=== PATIENT | male | born 1955 | race Caucasian/White ===

== ENCOUNTER 2017-01-11 07:21 | Day surgery (SDC) | payer MEDICARE, MEDICAID ==
[2017-01-11] MEDS ORDERED: Propofol 200 MG/20 ML SDV ONE (07:36)
[2017-01-11] MEDS ORDERED: fentaNYL 100 MCG/2 ML SDV ONE (07:36)
[2017-01-11] MEDS ORDERED: Midazolam 1 MG/ML 2 ML SDV ONE (07:36)
[2017-01-11] MEDS ORDERED: Dextrose 5%-Lactated Ringers 1,000 ML IV SCH (07:45)
[2017-01-11] MEDS ORDERED: Glycopyrrolate 0.2 MG/ML 2 ML SDV IVPUSH ONE (08:15)
[2017-01-11] MEDS ORDERED: Albuterol/Ipratropium 3.0-0.5 MG/3 ML Neb Soln NEB ONE (08:45)
[2017-01-11] MEDS ORDERED: Pantoprazole 40 MG Vial IVPUSH ONE (09:42)
[2017-01-11 10:53] VITALS: BP 128/69
--- NOTE | 2017-01-18 10:22 | OR ---
DATE OF PROCEDURE: 01/11/2017 PREOPERATIVE DIAGNOSIS: Anemia. POSTOPERATIVE DIAGNOSIS: Mild gastritis with scattered small erosions in gastric body and antrum. OPERATIVE PROCEDURES: Esophagogastroduodenoscopy with antral biopsies for CLOtest. ANESTHESIA: IV sedation. INDICATION FOR PROCEDURE: This is a 61-year-old presenting with macrocytic anemia. The plan is to proceed with an upper GI endoscopy with biopsies as indicated. Potential risks including bleeding and perforation were discussed, and the patient wishes to proceed. DETAILS OF PROCEDURE: The patient was taken to the operating room and placed in a left lateral decubitus position. IV sedation was administered, after which the upper GI endoscope was passed orally through the length of the esophagus and into the stomach with retroflexion view of the fundus, thereafter through the pyloric channel and into the duodenum to the junction of the third and fourth portions. The hypopharynx, larynx, upper esophageal sphincter, esophageal body, and EG junction were all unremarkable. As one passed the scope into the stomach, there was mild, more or less, diffuse gastritis. There were a few scattered erosions within the gastric body and antrum. No bleeding was seen and no true ulcers were seen. The pyloric channel and duodenum to the junction of the third and fourth portions were unremarkable. At this point, biopsies were obtained from the antrum and sent for CLOtest for H. pylori. Minimal bleeding from the biopsy sites was seen and the procedure then concluded. An important set of negatives in this case, given the history of alcoholism, was that of lack of any evidence of esophageal or gastric varices, and he had no significant hiatal hernia or gastroesophageal reflux disease. The plan will be to start the patient on Protonix 40 mg daily, and we will have him see Shaun Canada PA-C, in followup as arranged. Jesús Galindo MD /[id number]
== END 2017-01-11 11:00 | disposition home or self-care (01) ==
LOC: JP.SDS 07:21
PROVIDERS: ATTEND Surgery
DX: K29.00 Acute gastritis without bleeding (principal); I25.10 Atherosclerotic heart disease of native coronary artery without angina pectoris; I10 Essential (primary) hypertension; J44.9 Chronic obstructive pulmonary disease, unspecified; I73.9 Peripheral vascular disease, unspecified; K21.9 Gastro-esophageal reflux disease without esophagitis; I25.2 Old myocardial infarction
CPT/HCPCS: 43239; 87081; C9113; J2250; J2704; J7042; J7620; J3010

== ENCOUNTER 2017-04-01 00:12 | Inpatient (IN) | payer MEDICARE, MEDICAID ==
[2017-04-01] MEDS ORDERED: Albuterol/Ipratropium 3.0-0.5 MG/3 ML Neb Soln NEB ONE (00:27)
--- NOTE | 2017-04-01 01:14 | EDM.PDOC ---
ED HPI GENERAL MEDICAL PROBLEM - General Chief Complaint: General Stated Complaint: [facility] Time Seen by Provider: 04/01/17 00:30 Source of Information: Reports: Patient, EMS, Family History Limitations: Reports: No Limitations - History of Present Illness INITIAL COMMENTS - FREE TEXT/NARRATIVE: 61-year-old male, chronic COPD and likely chronic EtOH abuser lives alone. Today he was in his kitchen and fell onto his right side injuring his right chest and right knee and upper leg. He was unable to get back up so laid on the floor for 3 hours until he was able to crawl to a phone and call 911. He still feels he is unable to bear weight, he was found to be fairly significantly hypoxic with an O2 saturation of 84-85% but wasn't complaining of significant dyspnea. No chest pain or fever. Onset: Sudden Duration: Hour(s): (Fell 3 hours ago) Location: Reports: Chest, Lower Extremity, Right Quality: Reports: Sharp Severity: Moderate Worsens with: Reports: Movement Associated Symptoms: Reports: Chest Pain (Localized right lateral chest pain from the fall), Cough, Shortness of Breath Right Knee Pain Score (Numeric/FACES): 8 Right Side Chest Pain Score (Numeric/FACES): 4 - Related Data Allergies Allergy/AdvReac Type Severity Reaction Status Date / Time No Known Allergies Allergy Verified 04/01/17 00:30 Home Meds: Home Meds Carvedilol [Coreg] 6.25 mg PO BID 01/26/13 [History] Clopidogrel [Plavix] 75 mg PO DAILY 01/26/13 [History] Nitroglycerin [Nitrostat] 1 tab SL ASDIRECTED PRN 01/26/13 [History] Simvastatin [Zocor] 40 mg PO BEDTIME 01/26/13 [History] Aspirin [Adult Low Dose Aspirin EC] 81 mg PO DAILY 09/27/13 [History] Folic Acid 1 tab PO DAILY 09/27/13 [History] Multivitamin with Minerals [Multiple Vitamin] 1 tab PO DAILY 09/27/13 [History] Thiamine [Vitamin B-1] 100 mg PO DAILY 09/27/13 [History] Cholecalciferol (Vitamin D3) [Vitamin D3] 5,000 units PO DAILY 12/30/16 [History ] Losartan [Cozaar] 100 mg PO DAILY 01/06/17 [History] Ondansetron [Zofran] 4 mg PO Q8H PRN 01/06/17 [History] amLODIPine [Norvasc] 5 mg PO DAILY 01/06/17 [History] Pantoprazole Sodium [Pantoprazole Sodium] 40 mg PO DAILY 04/01/17 [History] Past Medical History HEENT History: Reports: Impaired Vision Cardiovascular History: Reports: Blood Clots/VTE/DVT, High Cholesterol, Hypertension, [place], SOB on Exertion, Stents Respiratory History: Reports: SOB Gastrointestinal History: Reports: GERD Musculoskeletal History: Reports: Back Pain, Chronic, Other (See Below) Other Musculoskeletal History: legs painful. states from DVTs Neurological History: Reports: Other (See Below) Other Neuro History: has been passing out lately. Psychiatric History: Reports: Addiction, Other (See Below) Other Psychiatric History: ETOH Hematologic History: Reports: Anemia - Infectious Disease History Infectious Disease History: Reports: Chicken Pox Other Infectious Disease History: doesn't know - Past Surgical History Head Surgeries/Procedures: Reports: None HEENT Surgical History: Reports: None Cardiovascular Surgical History: Reports: Coronary Artery Stent, Vascular Surgery Respiratory Surgical History: Reports: None GI Surgical History: Reports: Colonoscopy, Hernia, Inguinal Neurological Surgical History: Reports: None Musculoskeletal Surgical History: Reports: None Social & Family History - Family History Family Medical History: Unobtainable - Tobacco Use Smoking Status *Q: Current Every Day Smoker Years of Tobacco use: 35 Packs/Tins Daily: 1 Used Tobacco, but Quit: No Month Tobacco Last Used: Dec. Second Hand Smoke Exposure: Yes - Caffeine Use Caffeine Use: Reports: Coffee - Alcohol Use Days Per Week of Alcohol Use: 7 Number of Drinks Per Day: 6 Total Drinks Per Week: 42 - Recreational Drug Use Recreational Drug Use: No ED ROS GENERAL - Review of Systems Review Of Systems: See Below Constitutional: Denies: Fever Respiratory: Reports: Cough Cardiovascular: Reports: Chest Pain GI/Abdominal: Denies: Abdominal Pain, Nausea, Vomiting : Reports: No Symptoms Musculoskeletal: Reports: Leg Pain (Right side) Skin: Reports: Bruising (Patient has an abrasion and bruise in the right lateral chest toward the right flank area) Neurological: Denies: Headache ED EXAM, GENERAL - Physical Exam Exam: See Below Exam Limited By: No Limitations General Appearance: Alert, No Apparent Distress (Fairly comfortable if lying still) Respiratory/Chest: No Respiratory Distress, Wheezing (Diffuse expiratory wheezes are heard), Other (Patient is not complaining of dyspnea but his O2 sats are only 84-87% on room air) Cardiovascular: Regular Rate, Rhythm GI/Abdominal: Soft, Non-Tender Extremities: Other (Patient has significant pain with any palpation of the distal femur of the right knee. No crepitus. No significant effusion.) Neurological: Alert, Oriented Skin Exam: Other (Abrasion on the right chest wall) Course - Vital Signs Last Recorded V/S: Last Vital Signs Temp 99.0 F 04/01/17 03:40 Pulse 75 04/01/17 03:40 Resp 20 04/01/17 03:40 BP 150/84 H 04/01/17 03:40 Pulse Ox 90 L 04/01/17 03:40 - Orders/Labs/Meds Orders: Active Orders 24 hr Category Date Time Status RT Aerosol Therapy [RC] ASDIRECTED Care 04/01/17 00:28 Active Chest wo Cont [CT] Stat Exams 04/01/17 00:31 Taken Femur Min 2V Rt [CR] Stat Exams 04/01/17 00:30 Taken Knee 3V Rt [CR] Stat Exams 04/01/17 00:30 Taken Knee wo Cont Rt [CT] Stat Exams 04/01/17 01:32 Taken DME for Discharge [COMM] Urgent Oth 04/01/17 02:21 Ordered Medication Orders Albuterol (Proventil Neb Soln) 2.5 mg NEB Q4H PRN PRN Reason: Shortness Of Breath/wheezing Albuterol/Ipratropium (Duoneb 3.0-0.5 Mg/3 Ml) 3 ml NEB QIDRT [facility] Amlodipine Besylate (Norvasc) 5 mg PO DAILY [facility] Aspirin (Halfprin) 81 mg PO DAILY [facility] Bisacodyl (Dulcolax) 5 mg PO DAILY PRN PRN Reason: Constipation Carvedilol (Coreg) 6.25 mg PO BID [facility] Clopidogrel Bisulfate (Plavix) 75 mg PO DAILY [facility] Docusate Sodium (Colace) 100 mg PO BID PRN PRN Reason: Constipation Folic Acid (Folic Acid) 1 mg PO DAILY [facility] Hydromorphone HCl (Dilaudid) 1 mg IVPUSH Q2H PRN PRN Reason: Pain Hydromorphone HCl (Dilaudid) 1 mg IVPUSH Q2H PRN PRN Reason: Pain (moderate 4-6) Sodium Chloride (Normal Saline) 1,000 mls @ 125 mls/hr IV ASDIRECTED [facility] Last Admin: 04/01/17 04:35 Dose: 125 mls/hr Lorazepam (Ativan) 1 mg IV Q6H PRN PRN Reason: Nausea/Vomiting Losartan Potassium (Cozaar) 100 mg PO DAILY [facility] Multivitamins/Minerals (Thera M Plus) 1 tab PO DAILY [facility] Nitroglycerin (Nitrostat) 0.4 mg SL ASDIRECTED PRN PRN Reason: Chest Pain Ondansetron HCl (Zofran Odt) 4 mg PO Q6H PRN PRN Reason: Nausea able to take PO Ondansetron HCl (Zofran) 4 mg IVPUSH Q4H PRN PRN Reason: Nausea/Vomiting Oxycodone/Acetaminophen (Percocet 325-5 Mg) 1 tab PO Q4H PRN PRN Reason: Pain (moderate 4-6) Last Admin: 04/01/17 03:37 Dose: 1 tab Pantoprazole Sodium (Protonix Iv) 40 mg IVPUSH Q24H [facility] Simvastatin (Zocor) 40 mg PO BEDTIME [facility] Thiamine HCl (Vitamin B-1) 100 mg PO DAILY [facility] Zolpidem Tartrate (Ambien) 5 mg PO BEDTIME PRN PRN Reason: Sleep Labs: Laboratory Tests 04/01/17 04/01/17 04/01/17 Range/Units 00:42 00:42 00:42 WBC 10.3 (4.5-11.0) K/uL RBC 3.59 L (4.30-5.90) M/uL Hgb 12.4 (12.0-15.0) g/dL Hct 35.1 L (40.0-54.0) % MCV 98 (80-98) fL MCH 35 H (27-31) pg MCHC 35 (32-36) % Plt Count 172 (150-400) K/uL Neut % (Auto) 75 H (36-66) % Lymph % (Auto) 14 L (24-44) % [place] % (Auto) 9 H (2-6) % Eos % (Auto) 1 L (2-4) % Baso % (Auto) 1 (0-1) % Sodium 129 L (140-148) mmol/L Potassium 3.7 (3.6-5.2) mmol/L Chloride 94 L (100-108) mmol/L Carbon Dioxide 22 (21-32) mmol/L Anion Gap 16.7 H (5.0-14.0) mmol/L BUN 11 D (7-18) mg/dL Creatinine 0.6 L (0.8-1.3) mg/dL Est Cr Clr Drug Dosing 102.06 mL/min Estimated GFR (MDRD) > 60 (>60) Glucose 108 H (74-106) mg/dL Calcium 8.3 L (8.5-10.1) mg/dL Creatine Kinase 95 (39-308) U/L Ethyl Alcohol 260 mg/dL Meds: Medications Generic Name Dose Route Start Last Admin Trade Name Freq PRN Reason Stop Dose Admin Albuterol 2.5 mg 04/01/17 03:01 Proventil Neb Soln NEB Q4H PRN Shortness Of Breath/wheezing Albuterol/Ipratropium 3 ml 04/01/17 07:00 Duoneb 3.0-0.5 Mg/3 Ml NEB QIDRT [facility] Amlodipine Besylate 5 mg 04/01/17 09:00 Norvasc PO DAILY [facility] Aspirin 81 mg 04/01/17 09:00 Halfprin PO DAILY [facility] Bisacodyl 5 mg 04/01/17 03:01 Dulcolax PO DAILY PRN Constipation Carvedilol 6.25 mg 04/01/17 09:00 Coreg PO BID [facility] Clopidogrel Bisulfate 75 mg 04/01/17 09:00 Plavix PO DAILY [facility] Docusate Sodium 100 mg 04/01/17 03:01 Colace PO BID PRN Constipation Folic Acid 1 mg 04/01/17 09:00 Folic Acid PO DAILY [facility] Hydromorphone HCl 1 mg 04/01/17 03:01 Dilaudid IVPUSH Q2H PRN Pain Hydromorphone HCl 1 mg 04/01/17 03:16 Dilaudid IVPUSH Q2H PRN Pain (moderate 4-6) Sodium Chloride 1,000 mls @ 125 mls/hr 04/01/17 03:01 04/01/17 04:35 Normal Saline IV 125 mls/hr ASDIRECTED [facility] Administration Lorazepam 1 mg 04/01/17 03:01 Ativan IV Q6H PRN Nausea/Vomiting Losartan Potassium 100 mg 04/01/17 09:00 Cozaar PO DAILY [facility] Multivitamins/Minerals 1 tab 04/01/17 09:00 Thera M Plus PO DAILY [facility] Nitroglycerin 0.4 mg 04/01/17 03:01 Nitrostat SL ASDIRECTED PRN Chest Pain Ondansetron HCl 4 mg 04/01/17 03:01 Zofran Odt PO Q6H PRN Nausea able to take PO Ondansetron HCl 4 mg 04/01/17 03:01 Zofran IVPUSH Q4H PRN Nausea/Vomiting Oxycodone/Acetaminophen 1 tab 04/01/17 03:16 04/01/17 03:37 Percocet 325-5 Mg PO 1 tab Q4H PRN Administration Pain (moderate 4-6) Pantoprazole Sodium 40 mg 04/02/17 07:30 Protonix Iv IVPUSH Q24H [facility] Simvastatin 40 mg 04/01/17 21:00 Zocor PO BEDTIME [facility] Thiamine HCl 100 mg 04/01/17 09:00 Vitamin B-1 PO DAILY [facility] Zolpidem Tartrate 5 mg 04/01/17 03:01 Ambien PO BEDTIME PRN Sleep Discontinued Medications Generic Name Dose Route Start Last Admin Trade Name Freq PRN Reason Stop Dose Admin Albuterol/Ipratropium 3 ml 04/01/17 00:27 04/01/17 00:32 Duoneb 3.0-0.5 Mg/3 Ml NEB 04/01/17 00:28 3 ml ONETIME ONE Administration Multivitamins/Minerals 10 ml/ 1,017.2 mls @ 999 mls/hr 04/01/17 03:30 04:05 Thiamine HCl 100 mg/ Folic IV 04/01/17 04:32 999 mls/hr Acid 1 mg/ Magnesium Sulfate 3 ASDIRECTED [facility] Administration gm/ Sodium Chloride Sodium Chloride 1,000 mls @ 125 mls/hr 04/01/17 03:01 Normal Saline IV ASDIRECTED [facility] Pantoprazole Sodium 40 mg 04/01/17 03:30 04/01/17 04:05 Protonix Iv IVPUSH 04/01/17 03:31 40 mg ONETIME ONE Administration - Re-Assessments/Exams Free Text/Narrative Re-Assessment/Exam: 04/01/17 01:13 Patient was given a DuoNeb which unfortunately didn't improve his oxygen saturation significantly. CBC, BMP and CK were obtained as well as a x-ray of his right femur and knee. A CT of the chest without contrast was also obtained. 04/01/17 01:47 EtOH was 0.26. White blood cell count and hemoglobin was normal. Chest CT showed multiple right rib fractures, the knee x-ray was abnormal with irregular bone periosteum and calcifications. This was followed by a knee CT scan to assess whether any of the changes were acute. Patient will need admission because of the hypoxia, COPD with the complications of multiple rib fractures. 04/01/17 01:49 Kidney function was normal, CK was 95. No concern for rhabdomyolysis. Patient continued to need 3-4 L of nasal cannula oxygen to maintain sats in the 90s. 04/01/17 02:[address] confirmed an acute femoral metaphysis fx. Departure - Departure Time of Disposition: 03:32 Disposition: Admitted As Inpatient 68 Condition: Fair Clinical Impression: Multiple fractures of ribs of right side Qualifiers: Encounter type: initial encounter Fracture type: closed Qualified Code(s): S22.41XA - Multiple fractures of ribs, right side, initial encounter for closed fracture Alcohol intoxication Qualifiers: Complication of substance-induced condition: uncomplicated Qualified Code(s): F10.920 - Alcohol use, unspecified with intoxication, uncomplicated COPD (chronic obstructive pulmonary disease) Qualifiers: COPD type: unspecified COPD Qualified Code(s): J44.9 - Chronic obstructive pulmonary disease, unspecified Fracture of femur, distal, closed Qualifiers: Encounter type: initial encounter Fracture morphology: unspecified fracture morphology - Discharge Information - My Orders Last 24 Hours: My Active Orders 04/01/17 00:28 RT Aerosol Therapy [RC] ASDIRECTED 04/01/17 00:30 Femur Min 2V Rt [CR] Stat Knee 3V Rt [CR] Stat 04/01/17 00:31 Chest wo Cont [CT] Stat 04/01/17 01:32 Knee wo Cont Rt [CT] Stat - Assessment/Plan Last 24 Hours: My Active Orders 04/01/17 00:28 RT Aerosol Therapy [RC] ASDIRECTED 04/01/17 00:30 Femur Min 2V Rt [CR] Stat Knee 3V Rt [CR] Stat 04/01/17 00:31 Chest wo Cont [CT] Stat 04/01/17 01:32 Knee wo Cont Rt [CT] Stat
--- NOTE | 2017-04-01 02:48 | PCM.HP ---
H&P History of Present Illness - General Date of Service: 04/01/17 Admit Problem/Dx: Admission Diagnosis/Problem Admission Diagnosis/Problem Fall at home Source of Information: Patient, Family (Sister and Nephew) - History of Present Illness Initial Comments - Free Text/Narative: 61-year-old male, chronic COPD and likely chronic EtOH abuser lives alone. Today he was in his kitchen and fell onto his right side injuring his right chest and right knee and upper leg. He was unable to get back up so laid on the floor for 3 hours until he was able to crawl to a phone and call 911. He still feels he is unable to bear weight, he was found to be fairly significantly hypoxic with an O2 saturation of 84-85% but wasn't complaining of significant dyspnea. No chest pain or fever. Onset: Sudden Duration: Hour(s): (Fell 3 hours ago) Location: Reports: Chest, Lower Extremity, Right Quality: Reports: Sharp Severity: Moderate Worsens with: Reports: Movement Associated Symptoms: Reports: Chest Pain (Localized right lateral chest pain from the fall), Cough, Shortness of Breath Right Knee Pain Score (Numeric/FACES): 8 Right Side Chest Pain Score (Numeric/FACES): 4 04/01/17 01:13 Patient was given a DuoNeb which unfortunately didn't improve his oxygen saturation significantly. CBC, BMP and CK were obtained as well as a x-ray of his right femur and knee. A CT of the chest without contrast was also obtained. 04/01/17 01:47 EtOH was 0.26. White blood cell count and hemoglobin was normal. Chest CT showed multiple right rib fractures, the knee x-ray was abnormal with irregular bone periosteum and calcifications. This was followed by a knee CT scan to assess whether any of the changes were acute. Patient will need admission because of the hypoxia, COPD with the complications of multiple rib fractures. 04/01/17 01:49 Kidney function was normal, CK was 95. No concern for rhabdomyolysis. Patient continued to need 3-4 L of nasal cannula oxygen to maintain sats in the 90s. 04/01/17 02:[address] confirmed an acute femoral metaphysis fx. Departure - Departure Disposition: Admitted As Inpatient 68 Condition: Fair Clinical Impression: Multiple fractures of ribs of right side Qualifiers: Encounter type: initial encounter Fracture type: closed Qualified Code(s): S22.41XA - Multiple fractures of ribs, right side, initial encounter for closed fracture Alcohol intoxication Qualifiers: Complication of substance-induced condition: uncomplicated Qualified Code(s): F10.920 - Alcohol use, unspecified with intoxication, uncomplicated COPD (chronic obstructive pulmonary disease) Qualifiers: COPD type: emphysema Fracture of femur, distal, closed Qualifiers: Encounter type: initial encounter Fracture morphology: unspecified fracture morphology Onset of Symptoms: Reports: Sudden Duration of Symptoms: Reports: Hour(s): Location: Reports: Generalized Severity: Mild Improves with: Reports: Immobilization Worsens with: Reports: Movement Context: Reports: Other (fall at home. unable to get up) Associated Symptoms: Reports: Weakness Right Knee Pain Score (Numeric/FACES): 8 Right Side Chest Pain Score (Numeric/FACES): 4 - Related Data Allergies/Adverse Reactions: Allergies Allergy/AdvReac Type Severity Reaction Status Date / Time No Known Allergies Allergy Verified 04/01/17 00:30 Home Medications: Home Meds Carvedilol [Coreg] 6.25 mg PO BID 01/26/13 [History] Clopidogrel [Plavix] 75 mg PO DAILY 01/26/13 [History] Nitroglycerin [Nitrostat] 1 tab SL ASDIRECTED PRN 01/26/13 [History] Simvastatin [Zocor] 40 mg PO BEDTIME 01/26/13 [History] Aspirin [Adult Low Dose Aspirin EC] 81 mg PO DAILY 09/27/13 [History] Folic Acid 1 tab PO DAILY 09/27/13 [History] Multivitamin with Minerals [Multiple Vitamin] 1 tab PO DAILY 09/27/13 [History] Thiamine [Vitamin B-1] 100 mg PO DAILY 09/27/13 [History] Cholecalciferol (Vitamin D3) [Vitamin D3] 5,000 units PO DAILY 12/30/16 [History ] Losartan [Cozaar] 100 mg PO DAILY 01/06/17 [History] Ondansetron [Zofran] 4 mg PO Q8H PRN 01/06/17 [History] amLODIPine [Norvasc] 5 mg PO DAILY 01/06/17 [History] Pantoprazole Sodium [Pantoprazole Sodium] 40 mg PO DAILY 04/01/17 [History] Past Medical History HEENT History: Reports: Impaired Vision Cardiovascular History: Reports: Blood Clots/VTE/DVT, High Cholesterol, Hypertension, PR, SOB on Exertion, Stents Respiratory History: Reports: SOB Gastrointestinal History: Reports: GERD Musculoskeletal History: Reports: Back Pain, Chronic, Other (See Below) Other Musculoskeletal History: legs painful. states from DVTs Neurological History: Reports: Other (See Below) Other Neuro History: has been passing out lately. Psychiatric History: Reports: Addiction, Other (See Below) Other Psychiatric History: ETOH Hematologic History: Reports: Anemia - Infectious Disease History Infectious Disease History: Reports: Chicken Pox Other Infectious Disease History: doesn't know - Past Surgical History Head Surgeries/Procedures: Reports: None HEENT Surgical History: Reports: None Cardiovascular Surgical History: Reports: Coronary Artery Stent, Vascular Surgery Respiratory Surgical History: Reports: None GI Surgical History: Reports: Colonoscopy, Hernia, Inguinal Neurological Surgical History: Reports: None Musculoskeletal Surgical History: Reports: None Social & Family History - Family History Family Medical History: Unobtainable - Tobacco Use Smoking Status *Q: Current Every Day Smoker Years of Tobacco use: 35 Packs/Tins Daily: 1 Used Tobacco, but Quit: No Month Tobacco Last Used: Jan. Second Hand Smoke Exposure: Yes - Caffeine Use Caffeine Use: Reports: Coffee - Alcohol Use Days Per Week of Alcohol Use: 7 Number of Drinks Per Day: 6 Total Drinks Per Week: 42 - Recreational Drug Use Recreational Drug Use: No - Living Situation & Occupation Living situation: Reports: Single, Alone Occupation: Unemployed (lives near family. no children) H&P Review of Systems - Review of Systems: Review Of Systems: See Below General: Reports: No Symptoms HEENT: Reports: Glasses, Other (denture) Pulmonary: Reports: Shortness of Breath, Wheezing, Pleuritic Chest Pain Cardiovascular: Reports: Dyspnea on Exertion Gastrointestinal: Reports: No Symptoms Genitourinary: Reports: No Symptoms Musculoskeletal: Reports: Muscle Pain Skin: Reports: Pallor Psychiatric: Reports: No Symptoms Neurological: Reports: No Symptoms Hematologic/Lymphatic: Reports: No Symptoms Immunologic: Reports: No Symptoms Exam - Exam Exam: See Below - Vital Signs Vital Signs: Last Vital Signs Temp 36.4 C 04/01/17 01:27 Pulse 77 04/01/17 01:27 Resp 20 04/01/17 01:27 BP 139/75 04/01/17 01:27 Pulse Ox 93 L 04/01/17 01:27 Weight: 54.431 kg - Exam Quality Assessment: Supplemental Oxygen General: Alert, Oriented, Cooperative, Mild Distress HEENT: PERRLA, Conjunctiva Clear, EACs Clear, EOMI, Hearing Intact, Nares Patent , Normal Nasal Septum, Posterior Pharynx Clear, Pupils Equal, Pupils Reactive, TMs Clear, Other (dentures, tongue dry) Neck: Supple, Trachea Midline Lungs: Normal Respiratory Effort, Decreased Breath Sounds, Wheezing Cardiovascular: Regular Rate, Regular Rhythm, Normal S1, Normal S2 GI/Abdominal Exam: Normal Bowel Sounds, Soft, Non-Tender, No Organomegaly, No Distention (Male) Exam: Deferred Rectal (Males) Exam: Deferred Back Exam: Normal Inspection, Full Range of Motion, Other (right chest wall pain ) Extremities: Leg Pain (right) Peripheral Pulses: 2+: Dorsalis Pedis (L), Dorsalis Pedis (R) Skin: Warm, Dry, Intact, Ecchymosis Neurological: Reflexes Equal Bilateral, Strength Equal Bilateral, Normal Speech , Normal Tone, Sensation Intact Neuro Extensive - Mental Status: Normal Mood/Affect Psychiatric: Alert, Normal Affect, Normal Mood - Patient Data Lab Results Last 24 hrs: Laboratory Results - last 24 hr 04/01/17 04/01/17 04/01/17 Range/Units 00:42 00:42 00:42 WBC 10.3 (4.5-11.0) K/uL RBC 3.59 L (4.30-5.90) M/uL Hgb 12.4 (12.0-15.0) g/dL Hct 35.1 L (40.0-54.0) % MCV 98 (80-98) fL MCH 35 H (27-31) pg MCHC 35 (32-36) % Plt Count 172 (150-400) K/uL Neut % (Auto) 75 H (36-66) % Lymph % (Auto) 14 L (24-44) % [place] % (Auto) 9 H (2-6) % Eos % (Auto) 1 L (2-4) % Baso % (Auto) 1 (0-1) % Sodium 129 L (140-148) mmol/L Potassium 3.7 (3.6-5.2) mmol/L Chloride 94 L (100-108) mmol/L Carbon Dioxide 22 (21-32) mmol/L Anion Gap 16.7 H (5.0-14.0) mmol/L BUN 11 D (7-18) mg/dL Creatinine 0.6 L (0.8-1.3) mg/dL Est Cr Clr Drug Dosing 102.06 mL/min Estimated GFR (MDRD) > 60 (>60) Glucose 108 H (74-106) mg/dL Calcium 8.3 L (8.5-10.1) mg/dL Creatine Kinase 95 (39-308) U/L Ethyl Alcohol 260 mg/dL Result Diagrams: 04/01/17 00:42 04/01/17 00:42 *Q Meaningful Use (ADM) - VTE *Q VTE Criteria *Q: - Stroke *Q Stroke Criteria *Q: - AMI *Q AMI Criteria *Q: - Problem List (1) Chronic alcohol abuse SNOMED Code(s): 149842260 ICD Code: F10.10 - ALCOHOL ABUSE, UNCOMPLICATED Status: Acute Priority: High Current Visit: Yes (2) Alcohol intoxication SNOMED Code(s): 36660287 ICD Code: F10.929 - ALCOHOL USE, UNSPECIFIED WITH INTOXICATION, UNSPECIFIED Status: Acute Priority: High Current Visit: Yes Qualifiers: Complication of substance-induced condition: uncomplicated Qualified Code(s ): F10.920 - Alcohol use, unspecified with intoxication, uncomplicated (3) COPD (chronic obstructive pulmonary disease) SNOMED Code(s): 68984610 ICD Code: J44.9 - CHRONIC OBSTRUCTIVE PULMONARY DISEASE, UNSPECIFIED Status : Acute Priority: High Current Visit: Yes Qualifiers: COPD type: unspecified COPD Qualified Code(s): J44.9 - Chronic obstructive pulmonary disease, unspecified (4) Fracture of femur, distal, closed Status: Acute Priority: High Current Visit: Yes Qualifiers: Encounter type: initial encounter Fracture morphology: unspecified fracture morphology (5) Multiple fractures of ribs of right side SNOMED Code(s): 1240988 ICD Code: S22.41XA - MULTIPLE FRACTURES OF RIBS, RIGHT SIDE, INIT FOR CLOS FX Status: Acute Priority: High Current Visit: Yes Qualifiers: Encounter type: initial encounter Fracture type: closed Qualified Code(s) : S22.41XA - Multiple fractures of ribs, right side, initial encounter for closed fracture Problem List Initiated/Reviewed/Updated: Yes Orders Last 24hrs: Active Orders 24 hr Category Date Time Status Patient Status Manage Transfer [TRANSFER] Routine ADT 04/01/17 02:24 Active RT Aerosol Therapy [RC] ASDIRECTED Care 04/01/17 00:28 Active Chest wo Cont [CT] Stat Exams 04/01/17 00:31 Taken Femur Min 2V Rt [CR] Stat Exams 04/01/17 00:30 Taken Knee 3V Rt [CR] Stat Exams 04/01/17 00:30 Taken Knee wo Cont Rt [CT] Stat Exams 04/01/17 01:32 Taken DME for Discharge [COMM] Urgent Oth 04/01/17 02:21 Ordered Resuscitation Status Routine Resus Stat 04/01/17 02:25 Ordered Assessment/Plan Comment:: Admission Template ASSESSMENT / PLAN 61-year-old male, chronic COPD and likely chronic EtOH abuser lives alone. Today he was in his kitchen and fell onto his right side injuring his right chest and right knee and upper leg. He was unable to get back up so laid on the floor for 3 hours until he was able to crawl to a phone and call 911. He still feels he is unable to bear weight, he was found to be fairly significantly hypoxic with an O2 saturation of 84-85% but wasn't complaining of significant dyspnea. No chest pain or fever. -04/01/17 01:13 Patient was given a DuoNeb which unfortunately didn't improve his oxygen saturation significantly. CBC, BMP and CK were obtained as well as a x-ray of his right femur and knee. A CT of the chest without contrast was also obtained. 04/01/17 01:47 EtOH was 0.26. White blood cell count and hemoglobin was normal. Chest CT showed multiple right rib fractures, the knee x-ray was abnormal with irregular bone periosteum and calcifications. This was followed by a knee CT scan to assess whether any of the changes were acute. Patient will need admission because of the hypoxia, COPD with the complications of multiple rib fractures. 04/01/17 01:49 Kidney function was normal, CK was 95. No concern for rhabdomyolysis. Patient continued to need 3-4 L of nasal cannula oxygen to maintain sats in the 90s. 04/01/17 02:[address] confirmed an acute femoral metaphysis fx. Plan -Admit to [address] [place] [address] for further monitoring Multi right Rib fracture, -pain control -need IS -IV Fluids for rehydration NS at 125 mL per hour COPD -albuterol nebulizer every 4 hours as needed for wheezing and cough -Duo nebu ; schedule nebulize every 6 hours -Advise to notify nurses of any chest pain or other symptoms acute and chronic Alcoholism reports drinks 12 beers every day for the past 20 years. -IV Banana bag x1 -CIWAA protocal Tobacco Use -declines any nicotine patches Fx right femur and knee -consult to Orthopedics -apply knee immobilizer Maintenance issues -Orders home meds: ordered -Nutrition: regular diet -Virgen catheter not indicated at this time -DVT: SCD -PPI: IV Protonix 40mg daily -consult OT for discharge planning -consult PT for strengthening. CODE STATUS: FULL CODE Admission status: Admit to [address] [place] [address] Admission justification. This patient will be admitted for inpatient services and is medically appropriate meeting medical necessity for inpatient admission as outlined in my documentation. I reasonably expect the patient will require inpatient services that span. Time over 2 midnights. I reasonably expect this patient to be discharged or transferred within 96 hours after admission to the critical access [facility]. Disposition; home Primary care provider: not listed Hospitalist: Dr. Metzger
[2017-04-01] MEDS ORDERED: Ondansetron 4 MG/2 ML SDV IVPUSH PRN (03:01)
[2017-04-01] MEDS ORDERED: Albuterol 0.083% 2.5 MG/3 ML Neb Soln NEB PRN (03:01)
[2017-04-01] MEDS ORDERED: Bisacodyl 5 MG Tab PO PRN (03:01)
[2017-04-01] MEDS ORDERED: Sodium Chloride 0.9% 1,000 ML IV SCH ×2 (03:01)
[2017-04-01] MEDS ORDERED: HYDROmorphone 1 MG/ML Syringe IVPUSH PRN ×2 (03:01→03:16)
[2017-04-01] MEDS ORDERED: Ondansetron 4 MG Tab.DIS PO PRN (03:01)
[2017-04-01] MEDS ORDERED: Nitroglycerin 0.4 MG Tab.SL SL PRN (03:01)
[2017-04-01] MEDS ORDERED: Zolpidem 5 MG Tab PO PRN (03:01)
[2017-04-01] MEDS ORDERED: LORazepam 2 MG/ML MDV IV PRN (03:01)
[2017-04-01] MEDS ORDERED: MVI, Adult with Vitamin K 10 ML, Thiamine 100 MG, Folic Acid 1 MG, Magnesium Sulfate 3 ... IV SCH ×5 (03:30)
[2017-04-01] MEDS ORDERED: Pantoprazole 40 MG Vial IVPUSH ONE (03:30)
[2017-04-01] MEDS: Acetaminophen/oxyCODONE 325-5 MG Tab PO PRN ×3 (03:37→17:49)
[2017-04-01] MEDS: Albuterol/Ipratropium 3.0-0.5 MG/3 ML Neb Soln NEB SCH ×4 (07:32→20:39)
--- NOTE | 2017-04-01 08:42 | CR ---
Femur Min 2V Rt HISTORY: fall, pain FINDINGS: No acute fracture or dislocation is identified. Bony structures appear somewhat osteopenic. There are mild degenerative changes right hip. No joint effusion is seen. Scattered atherosclerotic vascular calcification is noted. Endovascular stent is present in the right common iliac artery. IMPRESSION: 1. Mild degenerative changes. No acute right hip abnormality is identified. 2. Possible osteopenia. 3. Atherosclerotic vascular calcification with endovascular stent noted in the right common iliac art tejal.
--- NOTE | 2017-04-01 08:50 | CR ---
Knee 3V Rt HISTORY: fall, pain FINDINGS: Bony structures appear somewhat osteopenic. There appears to be an oblique fracture of the metaphysis proximal right tibia. Questionable accompany nondisplaced fracture proximal right fibula i s seen. Acuity of these fractures is indeterminate. Recommend clinical correlation. Mild joint space narrowing is seen medial compartment. Scattered atherosclerotic vascular calcificati on is seen throughout the femoral and popliteal arteries. IMPRESSION: 1. Nondisplaced fractures proximal tibia and possibly fibula. Acuity is indeterminate. Recommend clin ical correlation for point tenderness. 2. Possible osteopenia. 3. Diffuse atherosclerotic vascular calcification.
[2017-04-01] MEDS ORDERED: Potassium Chloride 20 MEQ Tab.ER PO ONE (09:00)
[2017-04-01] MEDS: Folic Acid 1 MG Tab PO SCH (09:53)
[2017-04-01] MEDS: Losartan 50 MG Tab PO SCH (09:53)
[2017-04-01] MEDS: Clopidogrel 75 MG Tab PO SCH (09:54)
[2017-04-01] MEDS: Multivitamins with Iron/Calcium/Folic Acid/Minerals Tab PO SCH (09:54)
[2017-04-01] MEDS: amLODIPine 5 MG Tab PO SCH (09:54)
[2017-04-01] MEDS: Thiamine 100 MG Tab PO SCH (09:54)
[2017-04-01] MEDS: Aspirin 81 MG Tab.EC PO SCH ×2 (09:54→12:23)
[2017-04-01] MEDS: Carvedilol 6.25 MG Tab PO SCH ×2 (09:55→20:39)
[2017-04-01] MEDS ORDERED: Iopamidol 755 Mg/ML 100 ML Bottle IV SCH (12:30)
[2017-04-01] MEDS ORDERED: Sodium Chloride 0.9% 80 ML IV SCH (12:30)
[2017-04-01] MEDS ORDERED: LORazepam 2 MG/ML MDV IVPUSH PRN ×2 (13:21→13:24)
--- NOTE | 2017-04-01 13:23 | PCM.PN ---
- General Info Date of Service: 04/01/17 Functional Status: Reports: Pain Controlled - Review of Systems Pulmonary: Reports: Shortness of Breath, Cough Cardiovascular: Reports: Chest Pain (right lateral ribs) Gastrointestinal: Reports: Abdominal Pain Systems Review Comment:: Brooks was admitted last night after he fell at home and fractured several ribs on the right side and also has right knee pain. He has developed a progressive hypoxia throughout the course of the night and was requiring 4 L of oxygen this morning and was not maintaining oxygen saturations. He has low-grade temperature elevations as well as a productive cough with yellowish/green sputum. He reports moderate right-sided chest pain, especially with coughing. He also has mild to moderate right knee pain. With the progressive hypoxia he is now up to 8 L via Oxymizer and will be transferred to the intensive care unit. - Patient Data Vitals - Most Recent: Last Vital Signs Temp 37.8 C 04/01/17 13:08 Pulse 80 04/01/17 13:08 Resp 18 04/01/17 13:08 BP 146/77 H 04/01/17 13:08 Pulse Ox 84 L 04/01/17 13:08 Weight - Most Recent: 57.606 kg I&O - Last 24 Hours: Intake & Output 03/31/17 04/01/17 04/01/17 22:59 06:59 14:59 Intake Total 1000 878 Output Total 1200 Balance 1000 -322 Lab Results Last 24 Hours: Laboratory Results - last 24 hr 04/01/17 04/01/17 04/01/17 Range/Units 04:35 04:35 05:00 WBC 9.0 (4.5-11.0) K/uL RBC 3.38 L (4.30-5.90) M/uL Hgb 11.8 L (12.0-15.0) g/dL Hct 33.0 L (40.0-54.0) % MCV 98 (80-98) fL MCH 35 H (27-31) pg MCHC 36 (32-36) % Plt Count 162 (150-400) K/uL Neut % (Auto) 77 H (36-66) % Lymph % (Auto) 12 L (24-44) % Henderson % (Auto) 10 H (2-6) % Eos % (Auto) 0 L (2-4) % Baso % (Auto) 0 (0-1) % Puncture Site R radial ABG pH 7.364 (7.350-7.450) ABG pCO2 37.3 (35.0-42.0) mmHg ABG pO2 58.6 L (75.0-100.0) mmHg ABG HCO3 20.8 L (22.0-26.0) mmol/L ABG Total CO2 19.1 L (23.0-27.0) mmol/L ABG O2 Saturation 85.5 L (95.0-98.0) % ABG O2 Content 13.4 L (15.0-23.0) %vol ABG Base Excess -3.6 mm/L ABG Hemoglobin 11.5 L (13.5-18.0) g/dL ABG Oxyhemoglobin 82.8 % ABG Carboxyhemoglobin 2.5 H (0.0-1.6) % ABG Methemoglobin 0.6 % Humberto Test Passed O2 Delivery Device Nasal cannula Oxygen Flow Rate 2 L Sodium 128 L (140-148) mmol/L Potassium 3.4 L (3.6-5.2) mmol/L Chloride 94 L (100-108) mmol/L Carbon Dioxide 22 (21-32) mmol/L Anion Gap 15.4 H (5.0-14.0) mmol/L BUN 8 (7-18) mg/dL Creatinine 0.6 L (0.8-1.3) mg/dL Est Cr Clr Drug Dosing 119.63 mL/min Estimated GFR (MDRD) > 60 (>60) Glucose 97 (74-106) mg/dL Calcium 8.0 L (8.5-10.1) mg/dL Med Orders - Current: Current Medications Albuterol (Proventil Neb Soln) 2.5 mg NEB Q4H PRN PRN Reason: Shortness Of Breath/wheezing Last Admin: 04/01/17 12:03 Dose: 2.5 mg Albuterol/Ipratropium (Duoneb 3.0-0.5 Mg/3 Ml) 3 ml NEB QIDRT [facility] Last Admin: 04/01/17 10:58 Dose: 3 ml Amlodipine Besylate (Norvasc) 5 mg PO DAILY [facility] Last Admin: 04/01/17 09:54 Dose: 5 mg Aspirin (Halfprin) 81 mg PO DAILY [facility] Last Admin: 04/01/17 12:23 Dose: Not Given Bisacodyl (Dulcolax) 5 mg PO DAILY PRN PRN Reason: Constipation Carvedilol (Coreg) 6.25 mg PO BID [facility] Last Admin: 04/01/17 09:55 Dose: 6.25 mg Clopidogrel Bisulfate (Plavix) 75 mg PO DAILY [facility] Last Admin: 04/01/17 09:54 Dose: 75 mg Docusate Sodium (Colace) 100 mg PO BID PRN PRN Reason: Constipation Folic Acid (Folic Acid) 1 mg PO DAILY [facility] Last Admin: 04/01/17 09:53 Dose: 1 mg Hydromorphone HCl (Dilaudid) 1 mg IVPUSH Q2H PRN PRN Reason: Pain (moderate 4-6) Sodium Chloride (Normal Saline) 80 mls @ 4 mls/sec IV ASDIRECTED [facility] Stop: 04/01/17 23:00 Last Admin: 04/01/17 12:48 Dose: 4 mls/sec Azithromycin 500 mg/ Sodium (Chloride) 250 mls @ 250 mls/hr IV Q24H [facility] Ceftriaxone Sodium 2 gm/ (Sodium Chloride) 50 mls @ 100 mls/hr IV Q24H [facility] Iopamidol (Isovue-370 (76%)) 100 ml IV . DIRECTED [facility] Stop: 04/01/17 23:00 Last Admin: 04/01/17 12:48 Dose: 100 ml Lorazepam (Ativan) 1 mg IV Q6H PRN PRN Reason: Nausea/Vomiting Losartan Potassium (Cozaar) 100 mg PO DAILY [facility] Last Admin: 04/01/17 09:53 Dose: 100 mg Methylprednisolone Sodium Succinate (Solu-Medrol) 125 mg IVPUSH ONETIME ONE Stop: 04/01/17 13:31 Methylprednisolone Sodium Succinate (Solu-Medrol) 62.5 mg IVPUSH Q8H [facility] Multivitamins/Minerals (Thera M Plus) 1 tab PO DAILY [facility] Last Admin: 04/01/17 09:54 Dose: 1 tab Nitroglycerin (Nitrostat) 0.4 mg SL ASDIRECTED PRN PRN Reason: Chest Pain Ondansetron HCl (Zofran Odt) 4 mg PO Q6H PRN PRN Reason: Nausea able to take PO Ondansetron HCl (Zofran) 4 mg IVPUSH Q4H PRN PRN Reason: Nausea/Vomiting Last Admin: 04/01/17 12:59 Dose: 4 mg Oxycodone/Acetaminophen (Percocet 325-5 Mg) 1 tab PO Q4H PRN PRN Reason: Pain (moderate 4-6) Last Admin: 04/01/17 03:37 Dose: 1 tab Pantoprazole Sodium (Protonix Iv) 40 mg IVPUSH Q24H [facility] Simvastatin (Zocor) 40 mg PO BEDTIME NOEMY Thiamine HCl (Vitamin B-1) 100 mg PO DAILY [facility] Last Admin: 04/01/17 09:54 Dose: 100 mg Zolpidem Tartrate (Ambien) 5 mg PO BEDTIME PRN PRN Reason: Sleep Discontinued Medications Albuterol/Ipratropium (Duoneb 3.0-0.5 Mg/3 Ml) 3 ml NEB ONETIME ONE Stop: 04/01/17 00:28 Last Admin: 04/01/17 00:32 Dose: 3 ml Hydromorphone HCl (Dilaudid) 1 mg IVPUSH Q2H PRN PRN Reason: Pain Last Admin: 04/01/17 06:13 Dose: 1 mg Multivitamins/Minerals 10 ml/Thiamine HCl 100 mg/ Folic Acid 1 mg/ Magnesium Sulfate 3 gm/ Sodium Chloride 1,017.2 mls @ 999 mls/hr IV ASDIRECTED [facility] Stop: 04/01/17 04:32 Last Admin: 04/01/17 04:05 Dose: 999 mls/hr Sodium Chloride (Normal Saline) 1,000 mls @ 125 mls/hr IV ASDIRECTED [facility] Last Admin: 04/01/17 04:35 Dose: 125 mls/hr Sodium Chloride (Normal Saline) 1,000 mls @ 125 mls/hr IV ASDIRECTED [facility] Pantoprazole Sodium (Protonix Iv) 40 mg IVPUSH ONETIME ONE Stop: 04/01/17 03:31 Last Admin: 04/01/17 04:05 Dose: 40 mg Potassium Chloride (Klor-Con M20) 40 meq PO ONETIME ONE Stop: 04/01/17 09:01 Last Admin: 04/01/17 09:53 Dose: 40 meq - Exam Quality Assessment: Supplemental Oxygen General: Alert, Oriented, Cooperative, Moderate Distress Lungs: Clear to Auscultation, Normal Respiratory Effort, Other (prolonged exp phase) Cardiovascular: Regular Rate, Regular Rhythm GI/Abdominal Exam: Soft, Guarding, Tender Extremities: No Pedal Edema Skin: Warm, Dry Psy/Mental Status: Alert, Anxious - Problem List Review Problem List Initiated/Reviewed/Updated: Yes - My Orders Last 24 Hours: My Active Orders 04/01/17 12:06 Convert IV to Saline Lock [OM.PC] Routine 04/01/17 12:07 Transfer Patient (Change bed) [ADT] Routine Abdomen Pelvis w Cont [CT] Routine Ang Chest [CT] Stat 04/01/17 12:09 Cardiac Monitoring [RC] .As Directed Pulse Oximetry [RC] CONTINUOUS 04/01/17 12:30 Iopamidol [Isovue-370 (76%)] 100 ml IV . DIRECTED Sodium Chloride 0.9% [Normal Saline] 80 ml IV ASDIRECTED 04/01/17 13:17 CULTURE RESPIRATORY + SMEAR [RM] Routine 04/01/17 13:21 LORazepam [Ativan] 0.5 mg IVPUSH Q4H PRN 04/01/17 13:30 Azithromycin [Zithromax] 500 mg Sodium Chloride 0.9% [Normal Saline] 250 ml IV Q24H Potassium Chloride 20 MEQ,Lidocaine 1% 2 ML IN 100ML NS @ 50 MLS/HR Potassium Chloride 20 meq Lidocaine 1% [Xylocaine 1%] 2 ml Sodium Chloride 0.9% [Normal Saline] 100 ml IV Q2H cefTRIAXone [Rocephin] 2 gm Sodium Chloride 0.9% [Normal Saline] 50 ml IV Q24H methylPREDNISolone Sod Succ [Solu-MEDROL] 125 mg IVPUSH ONETIME ONE 04/01/17 22:00 methylPREDNISolone Sod Succ [Solu-MEDROL] 62.5 mg IVPUSH Q8H 04/02/17 05:00 BASIC METABOLIC PANEL,BMP [CHEM] Timed CBC W/O DIFF,HEMOGRAM [HEME] Timed (1) MAGNESIUM [CHEM] Timed - Plan Plan:: ASSESSMENT / PLAN Acute bronchitis with COPD exacerbation and hypoxic respiratory failure - progressive hypoxia overnight and throughout the morning. CT of the chest did not show evidence for pneumothorax, pulmonary embolism or pneumonia. With his sputum, cough and hypoxia I suspect bronchitis. Sputum culture has been collected and is pending. He has been transferred to the intensive care unit with his progressive hypoxia. -IV steroids -Antibiotic coverage with ceftriaxone and azithromycin -Supplement oxygen as needed -Consider noninvasive ventilation -Scheduled and as needed nebulizers Multi right sided Rib fractures - A moderate pain with coughing but otherwise appears comfortable. Probable small hemothorax noted on CT scan. -pain control -IS Chronic alcohol dependence - reports drinks 12 beers every day for the past 20 years. Patient is not interested in having alcohol available during the hospital stay. He does not appear to be actively withdrawing currently. -Lorazepam as needed for anxiety -CIWAA protocal -Consider lorazepam per protocol if progressive withdrawal symptoms Tobacco dependence - long smoking history complicated by emphysema. -declines any nicotine patches Fx right femur - distal lateral fracture, very small. Will need a period of nonweightbearing. Also noted were old tibia and fibula fractures. -consult to Orthopedics -Continue knee immobilizer -Nonweightbearing right leg Maintenance issues -Nutrition: regular diet -Virgen catheter not indicated at this time -DVT: SCD -PPI: PPI -consult OT for discharge planning -consult PT for strengthening. Disposition; Likely will need skilled nursing placement after the hospital stay Victor Hugo Metzger M.D.
--- NOTE | 2017-04-01 13:27 | CT ---
Ang Chest HISTORY: acute hypoxic resp failure, chest pain TECHNIQUE: Spiral enhanced pulmonary CT angiography of the chest was obtained along with coronal and 3-D sagittal reconstructions. FINDINGS: There is good enhancement of the pulmonary arteries bilaterally. I see no abnormal intraluminal filli ng defect, vascular cutoff, or nonenhancement. No pulmonary embolism is identified. Thoracic aorta is normal in caliber. I see no evidence for thoracic aortic aneurysm or dissection. Atherosclerotic elgin cification is noted in the aortic arch. Coronary artery calcification is noted. Heart size is within normal limits. Redemonstrated is mild peribronchial thickening central right middle and lower lobe bronchi with some mucous plugging in the mid to distal right lower lobe bronchi posteriorly. Mucous plugging of the br onchi is more prominent on today's exam. Remainder the chest is clear. Small right pleural effusion w ith adjacent compressive atelectasis posterior right lower lobe is stable. No left pleural fluid is s een. Upper abdominal structures are stable. IMPRESSION: 1. Negative for pulmonary embolism. No evidence for aortic aneurysm or dissection. 2. Small right pleural effusion with adjacent compressive atelectasis is stable. 3. Mild peribronchial thickening centrally right middle and lower lobe bronchi is similar to the prio r exam and could be inflammatory. There is increased mucous plugging mid to distal right lower lobe b viv. Total DLP 801 mGycm
[2017-04-01] MEDS ORDERED: methylPREDNISolone Sodium Succinate 125 MG/2 ML SDV IVPUSH ONE (13:30)
[2017-04-01] MEDS: Azithromycin 500 MG in Sodium Chloride 0.9% 250 ML IV SCH (13:44)
--- NOTE | 2017-04-01 13:44 | CT ---
Abdomen Pelvis w Cont HISTORY: severe abdominal pain with guarding, recent trauma Axial spiral enhanced CT scan of the chest was obtained along with coronal reconstructions. COMPARISON: 09/06/2013 FINDINGS: Small right pleural effusion is present with adjacent compressive atelectasis. There is a m inimal amount of free fluid in the right upper quadrant of the abdomen adjacent to the liver. No foca l amount of the liver, spleen, gallbladder, pancreas, adrenal glands, or kidneys is identified. There is a small amount of vascular calcification in each kidney. I see no hydronephrosis or ureteral dila tation. No obvious renal calculi are visualized. Atherosclerotic aorta is noted. There is no aneurysm al dilatation. No pelvic mass or abnormal fluid collections are seen. I see no pelvic, retroperitoneal, or mesenteri c adenopathy. There is no free fluid in the pelvis. Small bowel loops are nondistended. A normal-appe aring appendix is visualized. I see no significant diverticular disease. There is a slightly displaced fracture of the posterior right 11th rib. Posterior right 10th rib is f ractured in 2 places. There is a mildly displaced fracture posterior right ninth rib. These rib fract ures were not present on the prior study and may be acute. Recommend clinical correlation for point t enderness. IMPRESSION: 1. Small right pleural effusion with adjacent compressive atelectasis. A minimal amount of peritoneal fluid is seen adjacent to the liver. 2. Fractures of the posterior right ninth, 10th, and 11th ribs may be acute. Posterior right 10th rib is fractured in 2 places. Fractures are slightly displaced. No pneumothorax is seen. Recommend clini elgin correlation for point tenderness. 3. No other acute intra-abdominal or pelvic abnormality is identified. No other fractures are seen. 4. Endovascular stent is noted in the right common iliac artery. Total DLP 601 mGycm
[2017-04-01] MEDS: cefTRIAXone 2 GM in Sodium Chloride 0.9% 50 ML IV SCH (14:53)
--- NOTE | 2017-04-01 15:38 | PCM.CONS ---
H&P History of Present Illness - General Date of Service: 04/01/17 Admit Problem/Dx: Admission Diagnosis/Problem Admission Diagnosis/Problem Fall at home Source of Information: Patient - History of Present Illness Initial Comments - Free Text/Narative: Brooks is a 61-year-old male who was consulted on regarding a fall. Patient fell last night at home. He was brought into the emergency department and was diagnosed with the nondisplaced fracture of the fibula. He is currently lying in bed. He has his knee immobilizer on. Patient denies any pain at this time. He is quite drowsy at this time. Right Knee Pain Score (Numeric/FACES): 8 Right Side Chest Pain Score (Numeric/FACES): 7 - Related Data Allergies/Adverse Reactions: Allergies Allergy/AdvReac Type Severity Reaction Status Date / Time No Known Allergies Allergy Verified 04/01/17 00:30 Home Medications: Home Meds Carvedilol [Coreg] 6.25 mg PO BID 01/26/13 [History] Clopidogrel [Plavix] 75 mg PO DAILY 01/26/13 [History] Nitroglycerin [Nitrostat] 1 tab SL ASDIRECTED PRN 01/26/13 [History] Simvastatin [Zocor] 40 mg PO BEDTIME 01/26/13 [History] Aspirin [Adult Low Dose Aspirin EC] 81 mg PO DAILY 09/27/13 [History] Folic Acid 1 tab PO DAILY 09/27/13 [History] Multivitamin with Minerals [Multiple Vitamin] 1 tab PO DAILY 09/27/13 [History] Thiamine [Vitamin B-1] 100 mg PO DAILY 09/27/13 [History] Cholecalciferol (Vitamin D3) [Vitamin D3] 5,000 units PO DAILY 12/30/16 [History ] Losartan [Cozaar] 100 mg PO DAILY 01/06/17 [History] Ondansetron [Zofran] 4 mg PO Q8H PRN 01/06/17 [History] amLODIPine [Norvasc] 5 mg PO DAILY 01/06/17 [History] Pantoprazole Sodium [Pantoprazole Sodium] 40 mg PO DAILY 04/01/17 [History] Past Medical History HEENT History: Reports: Impaired Vision Cardiovascular History: Reports: Blood Clots/VTE/DVT, High Cholesterol, Hypertension, VT, SOB on Exertion, Stents Respiratory History: Reports: SOB Gastrointestinal History: Reports: GERD Musculoskeletal History: Reports: Back Pain, Chronic, Other (See Below) Other Musculoskeletal History: legs painful. states from DVTs Neurological History: Reports: Other (See Below) Other Neuro History: has been passing out lately. Psychiatric History: Reports: Addiction, Other (See Below) Other Psychiatric History: ETOH Hematologic History: Reports: Anemia - Infectious Disease History Infectious Disease History: Reports: Chicken Pox Other Infectious Disease History: doesn't know - Past Surgical History Head Surgeries/Procedures: Reports: None HEENT Surgical History: Reports: None Cardiovascular Surgical History: Reports: Coronary Artery Stent, Vascular Surgery Respiratory Surgical History: Reports: None GI Surgical History: Reports: Colonoscopy, Hernia, Inguinal Neurological Surgical History: Reports: None Musculoskeletal Surgical History: Reports: None Social & Family History - Family History Family Medical History: Unobtainable - Tobacco Use Smoking Status *Q: Current Every Day Smoker Years of Tobacco use: 35 Packs/Tins Daily: 1 Used Tobacco, but Quit: No Month Tobacco Last Used: Jan. Second Hand Smoke Exposure: Yes - Caffeine Use Caffeine Use: Reports: Coffee Caffeine Use Comment: about a pot a day - Alcohol Use Days Per Week of Alcohol Use: 7 Number of Drinks Per Day: 6 Total Drinks Per Week: 42 Date of Last Drink: 03/31/17 Time of Last Drink: 22:00 - Recreational Drug Use Recreational Drug Use: No - Living Situation & Occupation Living situation: Reports: Single, Alone Occupation: Unemployed (lives near family. no children) H&P Review of Systems - Review of Systems: Review Of Systems: See Below Musculoskeletal: Reports: Leg Pain Skin: Reports: No Symptoms Exam - Exam Exam: See Below - Vital Signs Vital Signs: Last Vital Signs Temp 37.3 C 04/01/17 14:57 Pulse 69 04/01/17 14:57 Resp 13 04/01/17 14:57 BP 108/59 L 04/01/17 14:57 Pulse Ox 89 L 04/01/17 14:57 Weight: 127 lb - Exam General: Oriented Extremities: Non-Tender, Normal Capillary Refill, Leg Pain Peripheral Pulses: 2+: Dorsalis Pedis (L), Dorsalis Pedis (R) Skin: Warm, Dry, Intact - Patient Data Lab Results Last 24 hrs: Laboratory Results - last 24 hr 04/01/17 04/01/17 04/01/17 Range/Units 04:35 04:35 05:00 WBC 9.0 (4.5-11.0) K/uL RBC 3.38 L (4.30-5.90) M/uL Hgb 11.8 L (12.0-15.0) g/dL Hct 33.0 L (40.0-54.0) % MCV 98 (80-98) fL MCH 35 H (27-31) pg MCHC 36 (32-36) % Plt Count 162 (150-400) K/uL Neut % (Auto) 77 H (36-66) % Lymph % (Auto) 12 L (24-44) % Henderson % (Auto) 10 H (2-6) % Eos % (Auto) 0 L (2-4) % Baso % (Auto) 0 (0-1) % Puncture Site R radial ABG pH 7.364 (7.350-7.450) ABG pCO2 37.3 (35.0-42.0) mmHg ABG pO2 58.6 L (75.0-100.0) mmHg ABG HCO3 20.8 L (22.0-26.0) mmol/L ABG Total CO2 19.1 L (23.0-27.0) mmol/L ABG O2 Saturation 85.5 L (95.0-98.0) % ABG O2 Content 13.4 L (15.0-23.0) %vol ABG Base Excess -3.6 mm/L ABG Hemoglobin 11.5 L (13.5-18.0) g/dL ABG Oxyhemoglobin 82.8 % ABG Carboxyhemoglobin 2.5 H (0.0-1.6) % ABG Methemoglobin 0.6 % Humberto Test Passed O2 Delivery Device Nasal cannula Oxygen Flow Rate 2 L Sodium 128 L (140-148) mmol/L Potassium 3.4 L (3.6-5.2) mmol/L Chloride 94 L (100-108) mmol/L Carbon Dioxide 22 (21-32) mmol/L Anion Gap 15.4 H (5.0-14.0) mmol/L BUN 8 (7-18) mg/dL Creatinine 0.6 L (0.8-1.3) mg/dL Est Cr Clr Drug Dosing 119.63 mL/min Estimated GFR (MDRD) > 60 (>60) Glucose 97 (74-106) mg/dL Calcium 8.0 L (8.5-10.1) mg/dL Result Diagrams: 04/01/17 04:35 04/01/17 04:35 Zak Results Last 24 hrs: Microbiology 04/01/17 13:17 Gram Stain - Final Sputum - Expectorated Consult PN Assessment/Plan Procedures: Procedures ASSAY OF ETHANOL (01/26/13) ASSAY OF TROPONIN QUANT (12/08/16) CARDIOVASCULAR STRESS TEST (01/04/17) CARDIOVASCULAR STRESS TEST (01/04/17) CARDIOVASCULAR STRESS TEST (02/13/15) CHEST X-RAY 1 VIEW FRONTAL (01/26/13) COMPLETE CBC W/AUTO DIFF WBC (11/19/13) COMPREHEN METABOLIC PANEL (01/26/13) CONTROL OF NOSEBLEED (11/19/13) CREATINE MB FRACTION (12/08/16) CT ABD & PELV W/CONTRAST (09/06/13) CULTURE SCREEN ONLY (01/11/17) ECHO EXAM OF ABDOMEN (06/02/16) EGD BIOPSY SINGLE/MULTIPLE (01/11/17) ELECTROCARDIOGRAM REPORT (01/26/13) ELECTROCARDIOGRAM TRACING (01/26/13) EMERGENCY DEPT VISIT (11/22/13) EMERGENCY DEPT VISIT (11/22/13) EMERGENCY DEPT VISIT (11/19/13) EMERGENCY DEPT VISIT (11/19/13) EMERGENCY DEPT VISIT (01/26/13) EMERGENCY DEPT VISIT (01/26/13) HT MUSCLE IMAGE SPECT MULT (01/04/17) INCISION OF SPINAL NERVE (06/24/15) MRI BRAIN STEM W/O & W/DYE (02/05/14) MRI BRAIN STEM W/O DYE (08/04/13) PROTHROMBIN TIME (11/19/13) PRP I/GENE INIT BLOCK >5 YR (08/17/14) REMOVE FOREIGN BODY ADBOMEN (06/24/15) REMOVE NERVE LESION (06/24/15) REREPAIR ING HERNIA REDUCE (06/24/15) ROUTINE VENIPUNCTURE (11/19/13) THER/PROPH/DIAG INJ IV PUSH (01/26/13) THROMBOPLASTIN TIME PARTIAL (11/19/13) UPR/L XTREMITY ART 2 LEVELS (03/10/13) Problem List Initiated/Reviewed/Updated: Yes Plan: Patient is currently weightbearing as tolerated with the knee immobilizer on at all times. He is to follow-up with us in 4 weeks. He is to notify me if he has any other issues. He can take Tylenol ibuprofen as needed for pain.
[2017-04-01] MEDS: Potassium Chloride 20 MEQ, Lidocaine 1% 2 ML in Sodium Chloride 0.9% 100 ML IV SCH ×2 (15:58→17:50)
[2017-04-01] MEDS: Simvastatin 20 MG Tab PO SCH (20:39)
[2017-04-01] MEDS: methylPREDNISolone Sodium Succinate 125 MG/2 ML SDV IVPUSH SCH (21:59)
[2017-04-02] MEDS: Acetaminophen/oxyCODONE 325-5 MG Tab PO PRN ×2 (03:03→19:39)
[2017-04-02] MEDS: methylPREDNISolone Sodium Succinate 125 MG/2 ML SDV IVPUSH SCH ×3 (05:58→21:10)
[2017-04-02] MEDS: Albuterol/Ipratropium 3.0-0.5 MG/3 ML Neb Soln NEB SCH ×4 (06:59→20:26)
[2017-04-02] MEDS ORDERED: Pantoprazole 40 MG Vial IVPUSH SCH ×2 (07:30)
[2017-04-02] MEDS: Pantoprazole 40 MG Tab.CR PO SCH (07:57)
[2017-04-02] MEDS: Carvedilol 6.25 MG Tab PO SCH ×2 (08:03→20:26)
[2017-04-02] MEDS: Folic Acid 1 MG Tab PO SCH (08:04)
[2017-04-02] MEDS: Clopidogrel 75 MG Tab PO SCH (08:05)
[2017-04-02] MEDS: Aspirin 81 MG Tab.EC PO SCH (08:05)
[2017-04-02] MEDS: amLODIPine 5 MG Tab PO SCH (08:05)
[2017-04-02] MEDS: Thiamine 100 MG Tab PO SCH (08:06)
[2017-04-02] MEDS: Multivitamins with Iron/Calcium/Folic Acid/Minerals Tab PO SCH (08:06)
[2017-04-02] MEDS: Losartan 50 MG Tab PO SCH (08:17)
[2017-04-02] MEDS: Magnesium Sulfate/Water 2 GM in Premix Bag 1 BAG IV SCH ×2 (09:12→15:34)
--- NOTE | 2017-04-02 09:16 | PCM.PN ---
- General Info Date of Service: 04/02/17 - Review of Systems General: Reports: Weakness. Denies: Fever Pulmonary: Reports: Shortness of Breath, Cough Cardiovascular: Reports: Chest Pain Musculoskeletal: Reports: Joint Pain Systems Review Comment:: No acute events overnight and respiratory status has started to stabilize. He continues to require fairly high flow oxygen but is doing much better this morning than he was yesterday afternoon. Still having mild to moderate right- sided rib pain with coughing. Right knee pain is persistent but mild in nature at this time. He has not had any fevers. Cough seems a little better today. Still having abdominal pain but it is better than yesterday. - Patient Data Vitals - Most Recent: Last Vital Signs Temp 37.1 C 04/02/17 07:00 Pulse 86 04/02/17 08:03 Resp 16 04/02/17 07:00 BP 143/76 H 04/02/17 08:17 Pulse Ox 92 L 04/02/17 07:00 Weight - Most Recent: 55.1 kg I&O - Last 24 Hours: Intake & Output 04/01/17 04/02/17 04/02/17 22:59 06:59 14:59 Intake Total 474 988 360 Output Total 1225 500 500 Balance -751 488 -140 Lab Results Last 24 Hours: Laboratory Results - last 24 hr 04/02/17 04/02/17 Range/Units 04:30 04:30 WBC 11.7 H (4.5-11.0) K/uL RBC 3.65 L (4.30-5.90) M/uL Hgb 12.4 (12.0-15.0) g/dL Hct 36.5 L (40.0-54.0) % MCV 100 H (80-98) fL MCH 34 H (27-31) pg MCHC 34 (32-36) % Plt Count 157 (150-400) K/uL Sodium 132 L (140-148) mmol/L Potassium 4.3 (3.6-5.2) mmol/L Chloride 100 (100-108) mmol/L Carbon Dioxide 27 (21-32) mmol/L Anion Gap 9.3 (5.0-14.0) mmol/L BUN 6 L (7-18) mg/dL Creatinine 0.6 L (0.8-1.3) mg/dL Est Cr Clr Drug Dosing 103.31 mL/min Estimated GFR (MDRD) > 60 (>60) Glucose 161 H (74-106) mg/dL Calcium 8.6 (8.5-10.1) mg/dL Magnesium 1.7 L (1.8-2.4) mg/dL Zak Results Last 24 Hours: Microbiology 04/01/17 13:17 Gram Stain - Final Sputum - Expectorated Med Orders - Current: Current Medications Albuterol (Proventil Neb Soln) 2.5 mg NEB Q4H PRN PRN Reason: Shortness Of Breath/wheezing Last Admin: 04/01/17 12:03 Dose: 2.5 mg Albuterol/Ipratropium (Duoneb 3.0-0.5 Mg/3 Ml) 3 ml NEB QIDRT [facility] [place] Last Admin: 04/02/17 06:59 Dose: 3 ml Amlodipine Besylate (Norvasc) 5 mg PO DAILY [facility] [place] Last Admin: 04/02/17 08:05 Dose: 5 mg Aspirin (Halfprin) 81 mg PO DAILY [facility] [place] Last Admin: 04/02/17 08:05 Dose: 81 mg Bisacodyl (Dulcolax) 5 mg PO DAILY PRN PRN Reason: Constipation Carvedilol (Coreg) 6.25 mg PO BID [facility] [place] Last Admin: 04/02/17 08:03 Dose: 6.25 mg Clopidogrel Bisulfate (Plavix) 75 mg PO DAILY [facility] [place] Last Admin: 04/02/17 08:05 Dose: 75 mg Docusate Sodium (Colace) 100 mg PO BID PRN PRN Reason: Constipation Folic Acid (Folic Acid) 1 mg PO DAILY [facility] [place] Last Admin: 04/02/17 08:04 Dose: 1 mg Hydromorphone HCl (Dilaudid) 1 mg IVPUSH Q2H PRN PRN Reason: Pain (moderate 4-6) Azithromycin 500 mg/ Sodium (Chloride) 250 mls @ 250 mls/hr IV Q24H [facility] [place] Last Admin: 04/01/17 13:44 Dose: 250 mls/hr Ceftriaxone Sodium 2 gm/ (Sodium Chloride) 50 mls @ 100 mls/hr IV Q24H [facility] [place] Last Admin: 04/01/17 14:53 Dose: 100 mls/hr Magnesium Sulfate 2 gm/ Premix 50 mls @ 12.5 mls/hr IV Q6H [facility] [place] Stop: 04/02/17 18:59 Last Admin: 04/02/17 09:12 Dose: 12.5 mls/hr Lorazepam (Ativan) 0.5 mg IVPUSH Q2H PRN PRN Reason: Anxiety Losartan Potassium (Cozaar) 100 mg PO DAILY [facility] [place] Last Admin: 04/02/17 08:17 Dose: 100 mg Methylprednisolone Sodium Succinate (Solu-Medrol) 62.5 mg IVPUSH Q8H [facility] [place] Last Admin: 04/02/17 05:58 Dose: 62.5 mg Multivitamins/Minerals (Thera M Plus) 1 tab PO DAILY [facility] [place] Last Admin: 04/02/17 08:06 Dose: 1 tab Nitroglycerin (Nitrostat) 0.4 mg SL ASDIRECTED PRN PRN Reason: Chest Pain Ondansetron HCl (Zofran Odt) 4 mg PO Q6H PRN PRN Reason: Nausea able to take PO Ondansetron HCl (Zofran) 4 mg IVPUSH Q4H PRN PRN Reason: Nausea/Vomiting Last Admin: 04/01/17 12:59 Dose: 4 mg Oxycodone/Acetaminophen (Percocet 325-5 Mg) 1 tab PO Q4H PRN PRN Reason: Pain (moderate 4-6) Last Admin: 04/02/17 03:03 Dose: 1 tab Pantoprazole Sodium (Protonix) 40 mg PO ACBREAKFAST [facility] [place] Last Admin: 04/02/17 07:57 Dose: 40 mg Simvastatin (Zocor) 40 mg PO BEDTIME [facility] [place] Last Admin: 04/01/17 20:39 Dose: 40 mg Thiamine HCl (Vitamin B-1) 100 mg PO DAILY [facility] [place] Last Admin: 04/02/17 08:06 Dose: 100 mg Zolpidem Tartrate (Ambien) 5 mg PO BEDTIME PRN PRN Reason: Sleep Discontinued Medications Albuterol/Ipratropium (Duoneb 3.0-0.5 Mg/3 Ml) 3 ml NEB ONETIME ONE Stop: 04/01/17 00:28 Last Admin: 04/01/17 00:32 Dose: 3 ml Hydromorphone HCl (Dilaudid) 1 mg IVPUSH Q2H PRN PRN Reason: Pain Last Admin: 04/01/17 06:13 Dose: 1 mg Multivitamins/Minerals 10 ml/Thiamine HCl 100 mg/ Folic Acid 1 mg/ Magnesium Sulfate 3 gm/ Sodium Chloride 1,017.2 mls @ 999 mls/hr IV ASDIRECTED [facility] [place] Stop: 04/01/17 04:32 Last Admin: 04/01/17 04:05 Dose: 999 mls/hr Sodium Chloride (Normal Saline) 1,000 mls @ 125 mls/hr IV ASDIRECTED [facility] [place] Last Admin: 04/01/17 04:35 Dose: 125 mls/hr Sodium Chloride (Normal Saline) 1,000 mls @ 125 mls/hr IV ASDIRECTED [facility] [place] Sodium Chloride (Normal Saline) 80 mls @ 4 mls/sec IV ASDIRECTED [facility] [place] Stop: 04/01/17 23:00 Last Admin: 04/01/17 12:48 Dose: 4 mls/sec Potassium Chloride 20 meq/Lidocaine HCl 2 ml/ Sodium Chloride 112 mls @ 56 mls/ hr IV Q2H [facility] [place] Stop: 04/01/17 19:59 Last Admin: 04/01/17 17:50 Dose: 56 mls/hr Iopamidol (Isovue-370 (76%)) 100 ml IV . DIRECTED [facility] [place] Stop: 04/01/17 23:00 Last Admin: 04/01/17 12:48 Dose: 100 ml Lorazepam (Ativan) 1 mg IV Q6H PRN PRN Reason: Nausea/Vomiting Lorazepam (Ativan) 0.5 mg IVPUSH Q4H PRN PRN Reason: Anxiety Methylprednisolone Sodium Succinate (Solu-Medrol) 125 mg IVPUSH ONETIME ONE Stop: 04/01/17 13:31 Last Admin: 04/01/17 13:43 Dose: 125 mg Pantoprazole Sodium (Protonix Iv) 40 mg IVPUSH ONETIME ONE Stop: 04/01/17 03:31 Last Admin: 04/01/17 04:05 Dose: 40 mg Pantoprazole Sodium (Protonix Iv) 40 mg IVPUSH Q24H [facility] [place] Potassium Chloride (Klor-Con M20) 40 meq PO ONETIME ONE Stop: 04/01/17 09:01 Last Admin: 04/01/17 09:53 Dose: 40 meq - Exam Quality Assessment: Supplemental Oxygen General: Alert, Oriented, Cooperative, No Acute Distress Neck: Supple Lungs: Normal Respiratory Effort, Decreased Breath Sounds (lower 1/2 of lung rosas), Other (poor exp air flow) Cardiovascular: Regular Rate, Regular Rhythm GI/Abdominal Exam: Soft, No Distention Extremities: No Pedal Edema Skin: Warm, Dry Psy/Mental Status: Alert, Normal Affect - Problem List Review Problem List Initiated/Reviewed/Updated: Yes - My Orders Last 24 Hours: My Active Orders 04/01/17 12:06 Convert IV to Saline Lock [OM.PC] Routine 04/01/17 12:07 Transfer Patient (Change bed) [ADT] Routine 04/01/17 12:09 Cardiac Monitoring [RC] Q6H Pulse Oximetry [RC] CONTINUOUS 04/01/17 13:17 CULTURE RESPIRATORY + SMEAR [RM] Routine 04/01/17 13:24 LORazepam [Ativan] 0.5 mg IVPUSH Q2H PRN 04/01/17 13:30 Azithromycin [Zithromax] 500 mg Sodium Chloride 0.9% [Normal Saline] 250 ml IV Q24H 04/01/17 15:00 cefTRIAXone [Rocephin] 2 gm Sodium Chloride 0.9% [Normal Saline] 50 ml IV Q24H 04/01/17 16:01 Weight bearing status [OM.PC] Routine 04/01/17 17:22 ARTHUR Hose [Antiembolic Hose] [OM.PC] Routine 04/01/17 17:24 ARTHUR Hose [Antiembolic Hose] [OM.PC] Routine 04/01/17 22:00 methylPREDNISolone Sod Succ [Solu-MEDROL] 62.5 mg IVPUSH Q8H 04/02/17 07:30 Pantoprazole [ProTONIX] 40 mg PO ACBREAKFAST 04/02/17 09:00 Magnesium Sulfate/Water [Magnesium Sulfate 2 GM in Water 50 ML] 2 gm Premix Bag 1 bag IV Q6H 04/03/17 05:00 BASIC METABOLIC PANEL,BMP [CHEM] Timed CBC W/O DIFF,HEMOGRAM [HEME] Timed (1) - Plan Plan:: ASSESSMENT / PLAN Acute bronchitis with COPD exacerbation and hypoxic respiratory failure - no evidence for pneumonia. Respiratory status improving with current antibiotics and steroids. Still on fairly high flow oxygen at this time but clinically looks better. Cultures are pending. -IV steroids -Antibiotic coverage with ceftriaxone and azithromycin -Supplement oxygen as needed -Consider noninvasive ventilation if he declines -Scheduled and as needed nebulizers Multi right sided Rib fractures - pain a little better today but, most impressive with coughing. -pain control -IS Chronic alcohol dependence - reports drinks 12 beers every day for the past 20 years. Patient is not interested in having alcohol available during the hospital stay. He does not appear to be actively withdrawing currently. CIWA score has been around 4. -Lorazepam as needed for anxiety -CIWAA protocal -Consider lorazepam per protocol if progressive withdrawal symptoms Tobacco dependence - long smoking history complicated by emphysema. -declines any nicotine patches Fx right femur - distal lateral fracture, very small. Will need a period of nonweightbearing. Also noted were old tibia and fibula fractures. -Outpatient orthopedic follow-up -Continue knee immobilizer -Nonweightbearing right leg Maintenance issues -Nutrition: regular diet -Virgen catheter not indicated at this time -DVT: SCD -PPI: PPI -consult OT for discharge planning -consult PT for strengthening. Disposition; Likely will need fdc placement after the hospital stay but may be able to go home with home care if he makes some improvements over the weekend Victor Hugo Metzger M.D.
[2017-04-02] MEDS: Azithromycin 500 MG in Sodium Chloride 0.9% 250 ML IV SCH (13:21)
[2017-04-02] MEDS: cefTRIAXone 2 GM in Sodium Chloride 0.9% 50 ML IV SCH (15:31)
[2017-04-02] MEDS: Simvastatin 20 MG Tab PO SCH (20:26)
[2017-04-03] MEDS: methylPREDNISolone Sodium Succinate 125 MG/2 ML SDV IVPUSH SCH (05:06)
[2017-04-03] MEDS: Albuterol/Ipratropium 3.0-0.5 MG/3 ML Neb Soln NEB SCH ×4 (07:03→21:19)
[2017-04-03] MEDS: Acetaminophen/oxyCODONE 325-5 MG Tab PO PRN (08:02)
[2017-04-03] MEDS: Pantoprazole 40 MG Tab.CR PO SCH (08:02)
[2017-04-03] MEDS: Carvedilol 6.25 MG Tab PO SCH ×2 (08:05→21:18)
[2017-04-03] MEDS: Folic Acid 1 MG Tab PO SCH (08:07)
[2017-04-03] MEDS: Losartan 50 MG Tab PO SCH (08:07)
[2017-04-03] MEDS: Clopidogrel 75 MG Tab PO SCH (08:08)
[2017-04-03] MEDS: amLODIPine 5 MG Tab PO SCH (08:08)
[2017-04-03] MEDS: Aspirin 81 MG Tab.EC PO SCH (08:08)
[2017-04-03] MEDS: Thiamine 100 MG Tab PO SCH (08:09)
[2017-04-03] MEDS: Multivitamins with Iron/Calcium/Folic Acid/Minerals Tab PO SCH (08:09)
[2017-04-03] MEDS ORDERED: Acetaminophen 325 MG Tab PO PRN (08:19)
[2017-04-03] MEDS ORDERED: Potassium Chloride 20 MEQ Tab.ER PO ONE (09:00)
[2017-04-03] MEDS ORDERED: BEER PO PRN (09:20)
--- NOTE | 2017-04-03 09:23 | PCM.PN ---
- General Info Date of Service: 04/03/17 Functional Status: Reports: Pain Controlled, Tolerating Diet - Review of Systems General: Reports: Weakness Pulmonary: Reports: Cough Gastrointestinal: Reports: Abdominal Pain Systems Review Comment:: There were no acute events overnight. Respiratory status has continued to improve and he is down to only 4 L via nasal cannula this morning. Shortness of breath has continued to improve and cough seems a little better today. Still has moderate pain in the right side of his chest when he coughs. He has not had any fevers. Knee pain is minimal at this time. He has been able to get around with the use of a front wheeled walker. CIWA scores have been low and there is no strong evidence for alcohol withdrawal though the patient currently has cravings for both alcohol and cigarettes. - Patient Data Vitals - Most Recent: Last Vital Signs Temp 37.6 C 04/03/17 07:00 Pulse 78 04/03/17 08:05 Resp 16 04/03/17 07:00 BP 166/72 H 04/03/17 08:08 Pulse Ox 87 L 04/03/17 07:00 Weight - Most Recent: 55 kg I&O - Last 24 Hours: Intake & Output 04/02/17 04/03/17 04/03/17 22:59 06:59 14:59 Intake Total 1690 600 Output Total 700 850 Balance 990 -250 Lab Results Last 24 Hours: Laboratory Results - last 24 hr 04/03/17 04/03/17 Range/Units 05:03 05:03 WBC 12.8 H (4.5-11.0) K/uL RBC 3.49 L (4.30-5.90) M/uL Hgb 11.9 L (12.0-15.0) g/dL Hct 35.0 L (40.0-54.0) % MCV 100 H (80-98) fL MCH 34 H (27-31) pg MCHC 34 (32-36) % Plt Count 147 L (150-400) K/uL Sodium 134 L (140-148) mmol/L Potassium 3.5 L (3.6-5.2) mmol/L Chloride 100 (100-108) mmol/L Carbon Dioxide 28 (21-32) mmol/L Anion Gap 9.5 (5.0-14.0) mmol/L BUN 8 (7-18) mg/dL Creatinine 0.6 L (0.8-1.3) mg/dL Est Cr Clr Drug Dosing 103.13 mL/min Estimated GFR (MDRD) > 60 (>60) Glucose 172 H (74-106) mg/dL Calcium 8.3 L (8.5-10.1) mg/dL Zak Results Last 24 Hours: Microbiology 04/01/17 13:17 Gram Stain - Final Sputum - Expectorated Respiratory Culture - Preliminary NORMAL RESPIRATORY [facility] 1 DAY Med Orders - Current: Current Medications Acetaminophen (Tylenol) 650 mg PO Q4H PRN PRN Reason: Pain/Fever Albuterol (Proventil Neb Soln) 2.5 mg NEB Q4H PRN PRN Reason: Shortness Of Breath/wheezing Last Admin: 04/01/17 12:03 Dose: 2.5 mg Albuterol/Ipratropium (Duoneb 3.0-0.5 Mg/3 Ml) 3 ml NEB QIDRT [facility] Last Admin: 04/03/17 07:03 Dose: 3 ml Amlodipine Besylate (Norvasc) 5 mg PO DAILY [facility] Last Admin: 04/03/17 08:08 Dose: 5 mg Aspirin (Halfprin) 81 mg PO DAILY [facility] Last Admin: 04/03/17 08:08 Dose: 81 mg Azithromycin (Zithromax) 500 mg PO DAILY [facility] Stop: 04/05/17 09:01 Bisacodyl (Dulcolax) 5 mg PO DAILY PRN PRN Reason: Constipation Carvedilol (Coreg) 6.25 mg PO BID [facility] Last Admin: 04/03/17 08:05 Dose: 6.25 mg Cefdinir (Omnicef) 300 mg PO BID [facility] Clopidogrel Bisulfate (Plavix) 75 mg PO DAILY [facility] Last Admin: 04/03/17 08:08 Dose: 75 mg Docusate Sodium (Colace) 100 mg PO BID PRN PRN Reason: Constipation Folic Acid (Folic Acid) 1 mg PO DAILY [facility] Last Admin: 04/03/17 08:07 Dose: 1 mg Lorazepam (Ativan) 0.5 mg PO Q4H PRN PRN Reason: Anxiety Losartan Potassium (Cozaar) 100 mg PO DAILY [facility] Last Admin: 04/03/17 08:07 Dose: 100 mg Multivitamins/Minerals (Thera M Plus) 1 tab PO DAILY [facility] Last Admin: 02/17/18 08:09 Dose: 1 tab Nitroglycerin (Nitrostat) 0.4 mg SL ASDIRECTED PRN PRN Reason: Chest Pain Non-Formulary Medication (Nf Drug) 1 each PO TID PRN PRN Reason: craving Ondansetron HCl (Zofran Odt) 4 mg PO Q6H PRN PRN Reason: Nausea able to take PO Ondansetron HCl (Zofran) 4 mg IVPUSH Q4H PRN PRN Reason: Nausea/Vomiting Last Admin: 04/01/17 12:59 Dose: 4 mg Oxycodone HCl (Oxycodone) 5 mg PO Q4H PRN PRN Reason: Pain Pantoprazole Sodium (Protonix) 40 mg PO ACBREAKFAST [facility] Last Admin: 04/03/17 08:02 Dose: 40 mg Prednisone (Prednisone) 20 mg PO BIDAC [facility] Simvastatin (Zocor) 40 mg PO BEDTIME [facility] Last Admin: 04/02/17 20:26 Dose: 40 mg Thiamine HCl (Vitamin B-1) 100 mg PO DAILY [facility] Last Admin: 04/03/17 08:09 Dose: 100 mg Zolpidem Tartrate (Ambien) 5 mg PO BEDTIME PRN PRN Reason: Sleep Discontinued Medications Albuterol/Ipratropium (Duoneb 3.0-0.5 Mg/3 Ml) 3 ml NEB ONETIME ONE Stop: 04/01/17 00:28 Last Admin: 04/01/17 00:32 Dose: 3 ml Hydromorphone HCl (Dilaudid) 1 mg IVPUSH Q2H PRN PRN Reason: Pain Last Admin: 04/01/17 06:13 Dose: 1 mg Hydromorphone HCl (Dilaudid) 1 mg IVPUSH Q2H PRN PRN Reason: Pain (moderate 4-6) Multivitamins/Minerals 10 ml/Thiamine HCl 100 mg/ Folic Acid 1 mg/ Magnesium Sulfate 3 gm/ Sodium Chloride 1,017.2 mls @ 999 mls/hr IV ASDIRECTED [facility] Stop: 04/01/17 04:32 Last Admin: 04/01/17 04:05 Dose: 999 mls/hr Sodium Chloride (Normal Saline) 1,000 mls @ 125 mls/hr IV ASDIRECTED [facility] Last Admin: 04/01/17 04:35 Dose: 125 mls/hr Sodium Chloride (Normal Saline) 1,000 mls @ 125 mls/hr IV ASDIRECTED [facility] Sodium Chloride (Normal Saline) 80 mls @ 4 mls/sec IV ASDIRECTED [facility] Stop: 04/01/17 23:00 Last Admin: 04/01/17 12:48 Dose: 4 mls/sec Azithromycin 500 mg/ Sodium (Chloride) 250 mls @ 250 mls/hr IV Q24H [facility] Last Admin: 04/02/17 13:21 Dose: 250 mls/hr Ceftriaxone Sodium 2 gm/ (Sodium Chloride) 50 mls @ 100 mls/hr IV Q24H [facility] Last Admin: 04/02/17 15:31 Dose: 100 mls/hr Potassium Chloride 20 meq/Lidocaine HCl 2 ml/ Sodium Chloride 112 mls @ 56 mls/ hr IV Q2H [facility] Stop: 04/01/17 19:59 Last Admin: 04/01/17 17:50 Dose: 56 mls/hr Magnesium Sulfate 2 gm/ Premix 50 mls @ 12.5 mls/hr IV Q6H [facility] Stop: 04/02/17 18:59 Last Admin: 04/02/17 15:34 Dose: 12.5 mls/hr Iopamidol (Isovue-370 (76%)) 100 ml IV . DIRECTED [facility] Stop: 04/01/17 23:00 Last Admin: 04/01/17 12:48 Dose: 100 ml Lorazepam (Ativan) 1 mg IV Q6H PRN PRN Reason: Nausea/Vomiting Lorazepam (Ativan) 0.5 mg IVPUSH Q4H PRN PRN Reason: Anxiety Lorazepam (Ativan) 0.5 mg IVPUSH Q2H PRN PRN Reason: Anxiety Methylprednisolone Sodium Succinate (Solu-Medrol) 125 mg IVPUSH ONETIME ONE Stop: 04/01/17 13:31 Last Admin: 04/01/17 13:43 Dose: 125 mg Methylprednisolone Sodium Succinate (Solu-Medrol) 62.5 mg IVPUSH Q8H [facility] Last Admin: 04/03/17 05:06 Dose: 62.5 mg Oxycodone/Acetaminophen (Percocet 325-5 Mg) 1 tab PO Q4H PRN PRN Reason: Pain (moderate 4-6) Last Admin: 04/03/17 08:02 Dose: 1 tab Pantoprazole Sodium (Protonix Iv) 40 mg IVPUSH ONETIME ONE Stop: 04/01/17 03:31 Last Admin: 04/01/17 04:05 Dose: 40 mg Pantoprazole Sodium (Protonix Iv) 40 mg IVPUSH Q24H [facility] Potassium Chloride (Klor-Con M20) 40 meq PO ONETIME ONE Stop: 04/01/17 09:01 Last Admin: 04/01/17 09:53 Dose: 40 meq Potassium Chloride (Klor-Con M20) 40 meq PO ONETIME ONE Stop: 04/03/17 09:01 - Exam Quality Assessment: Supplemental Oxygen General: Alert, Oriented, Cooperative, No Acute Distress Neck: Supple Lungs: Normal Respiratory Effort, Rhonchi (mild diffuse end exp), Wheezing ( mild end exp) Cardiovascular: Regular Rate, Regular Rhythm GI/Abdominal Exam: Soft, No Distention, Tender (RUQ) Extremities: No Pedal Edema Psy/Mental Status: Alert, Anxious (mild) - Problem List Review Problem List Initiated/Reviewed/Updated: Yes - My Orders Last 24 Hours: My Active Orders 04/03/17 08:19 Acetaminophen [Tylenol] 650 mg PO Q4H PRN LORazepam [Ativan] 0.5 mg PO Q4H PRN oxyCODONE 5 mg PO Q4H PRN 04/03/17 09:20 Non-Formulary Medication [NF Drug] 1 each PO TID PRN 04/03/17 09:30 Azithromycin [Zithromax] 500 mg PO DAILY 04/03/17 16:30 predniSONE 20 mg PO BIDAC 04/03/17 21:00 Cefdinir [Omnicef] 300 mg PO BID 04/04/17 05:00 BASIC METABOLIC PANEL,BMP [CHEM] Timed CBC W/O DIFF,HEMOGRAM [HEME] Timed (1) - Plan Plan:: ASSESSMENT / PLAN Acute bronchitis with COPD exacerbation and hypoxic respiratory failure - Respiratory status has continued to improve. Sputum culture negative so far. Not having fevers. Down to only 4 L of oxygen at this time. -Transition to prednisone -Transition to oral antibiotics (cefdinir and azithromycin) -Supplement oxygen as needed -Scheduled and as needed nebulizers Multiple right sided Rib fractures - pain manageable at this time. -pain control -IS Chronic alcohol dependence - reports drinks 12 beers every day for the past 20 years. Patient is now interested in having at least a couple of beers to help with his alcohol dependencehe is in the hospital. -Lorazepam as needed for anxiety -Beer 3 times a day as needed Tobacco dependence - long smoking history complicated by emphysema. -declines any nicotine replacement Fx right femur - distal lateral fracture, very small. Will need a period of nonweightbearing. Also noted were old tibia and fibula fractures. -Outpatient orthopedic follow-up -Continue knee immobilizer -Non-weightbearing right leg Maintenance issues -Nutrition: regular diet -Virgen catheter not indicated at this time -DVT: SCD -PPI: PPI -consult OT for discharge planning -consult PT for strengthening. Disposition; patient believes he will be able to manage at home and will utilize a 4 wheeled walker to get around by propelling himself with his good leg. Family is available to help with grocery shopping and laundry. He is insistent that he will not go to the senior living. He continues to require significant supplemental oxygen and I don't think is safe for discharge today. Hopefully he can continue to improve and may be ready in the next day or 2. Victor Hugo Metzger M.D.
[2017-04-03] MEDS: Azithromycin 250 MG Tab PO SCH (10:07)
[2017-04-03] MEDS: LORazepam 0.5 MG Tab PO PRN ×2 (10:08→19:30)
[2017-04-03] MEDS: predniSONE 20 MG Tab PO SCH (15:48)
[2017-04-03] MEDS: oxyCODONE 5 MG Tab PO PRN (19:29)
[2017-04-03] MEDS: Docusate Sodium 100 MG Cap PO PRN (19:33)
[2017-04-03] MEDS: Simvastatin 20 MG Tab PO SCH (21:19)
[2017-04-03] MEDS: Cefdinir 300 MG Cap PO SCH (21:19)
[2017-04-04] MEDS: oxyCODONE 5 MG Tab PO PRN ×2 (04:51→10:15)
[2017-04-04 07:13] VITALS: BP 165/82
[2017-04-04] MEDS: Pantoprazole 40 MG Tab.CR PO SCH (07:20)
[2017-04-04] MEDS: predniSONE 20 MG Tab PO SCH (07:20)
[2017-04-04] MEDS: Albuterol/Ipratropium 3.0-0.5 MG/3 ML Neb Soln NEB SCH (07:23)
[2017-04-04] MEDS: Carvedilol 6.25 MG Tab PO SCH (08:00)
[2017-04-04] MEDS: Multivitamins with Iron/Calcium/Folic Acid/Minerals Tab PO SCH (08:01)
[2017-04-04] MEDS: Clopidogrel 75 MG Tab PO SCH (08:01)
[2017-04-04] MEDS: Aspirin 81 MG Tab.EC PO SCH (08:01)
[2017-04-04] MEDS: Folic Acid 1 MG Tab PO SCH (08:01)
[2017-04-04] MEDS: Losartan 50 MG Tab PO SCH (08:01)
[2017-04-04] MEDS: Thiamine 100 MG Tab PO SCH (08:01)
[2017-04-04] MEDS: amLODIPine 5 MG Tab PO SCH (08:01)
[2017-04-04] MEDS: Cefdinir 300 MG Cap PO SCH (08:01)
[2017-04-04] MEDS: Docusate Sodium 100 MG Cap PO PRN (08:02)
[2017-04-04] MEDS: Azithromycin 250 MG Tab PO SCH (08:02)
[2017-04-04] MEDS ORDERED: Potassium Chloride 20 MEQ Tab.ER PO ONE (08:30)
--- NOTE | 2017-04-04 09:21 | PCM.DCSUM1 ---
Discharge Summary - Hospital Course Brief History: 61-year-old male with history of tobacco dependence and alcohol dependence who presents with right lateral chest and right knee pain after a syncopal episode and fall at home. He was admitted for pain control and additional workup and management. - Discharge Data Discharge Date: 04/04/17 Discharge Disposition: Home, Self-Care 01 Condition: Fair - Discharge Diagnosis/Problem(s) (1) Fracture of femur, distal, closed Status: Acute Priority: High Qualifiers: Encounter type: initial encounter Fracture morphology: unspecified fracture morphology (2) Multiple fractures of ribs of right side SNOMED Code(s): 3196460 ICD Code: S22.41XA - MULTIPLE FRACTURES OF RIBS, RIGHT SIDE, INIT FOR CLOS FX Status: Acute Priority: High Qualifiers: Encounter type: initial encounter Fracture type: closed Qualified Code(s) : S22.41XA - Multiple fractures of ribs, right side, initial encounter for closed fracture (3) Acute exacerbation of chronic obstructive pulmonary disease (COPD) SNOMED Code(s): 228073024 ICD Code: J44.1 - CHRONIC OBSTRUCTIVE PULMONARY DISEASE W (ACUTE) EXACERBATION Status: Acute (4) Acute bronchitis SNOMED Code(s): 74912669 ICD Code: J20.9 - ACUTE BRONCHITIS, UNSPECIFIED Status: Acute Qualifiers: Bronchitis organism: unspecified organism Qualified Code(s): J20.9 - Acute bronchitis, unspecified (5) Tobacco dependence SNOMED Code(s): 15241713 ICD Code: F17.200 - NICOTINE DEPENDENCE, UNSPECIFIED, UNCOMPLICATED Status : Chronic (6) Alcohol dependence SNOMED Code(s): 63966242 ICD Code: F10.20 - ALCOHOL DEPENDENCE, UNCOMPLICATED Status: Chronic Qualifiers: Substance use status: with intoxication Complication of substance-induced condition: uncomplicated Qualified Code(s): F10.220 - Alcohol dependence with intoxication, uncomplicated - Patient Summary/Data Consults: Consultations 04/01/17 03:01 Consult to Physician [CONS] Routine Consulting Provider: Jeovanny Galindo Call Completed to Consulting Physician: No Reason for Consult: right knee pain, hx of knee fracture 04/01/17 03:15 OT Evaluation and Treatment [CONS] Routine Please Evaluate and Treat. OT Reason for Consult: Discharge Planning This query below is only for informational purposes and is not editable. Admission Diagnosis/Problem: Fall at home PT Evaluation and Treatment [CONS] Routine Please Evaluate and Treat. PT Reason for Consult: Strengthening This query below is only for informational purposes and is not editable. Admission Diagnosis/Problem: Fall at home Hospital Course: Brooks presented to the emergency room with right lateral chest and right knee pain after a fall at home. Workup in the emergency room revealed fractures of multiple ribs on the right side as well as a very tiny fracture of the distal lateral part of the right femur. He was placed in a knee immobilizer and admitted for further management. He was on oxygen at the time of arrival and throughout his emergency room course. Overnight his respiratory status declined and he required larger and larger doses of supplemental oxygen. He had tachypnea and progressing hypoxia despite interventions on the medical floor and he was transferred to the intensive care unit. He was started on ceftriaxone and azithromycin for presumed bronchitis after a chest x-ray did not reveal an acute infiltrate. He also received IV steroids. We did get a CT scan of the chest with IV contrast to rule out a pulmonary embolism and this was negative. He also had some abdominal pain the morning after admission and a CT of the abdomen and pelvis was negative as well. Throughout the day he required fairly high flow oxygen but we were able to wean him down throughout the course of the day and overnight. We had additional improvements over the second day in the hospital. Sputum culture has grown normal respiratory louis. No other cultures were obtained. He has shown a slow but steady improvement in his respiratory status. He does continue to require 3 L of supplemental oxygen to maintain his saturations above 90. At this point he is requesting to go home. I think he could benefit from additional time in the hospital but he has been stable to improving and probably would be safe for outpatient management. He will need supplemental oxygen at home as discussed below. He will also need additional antibiotic and steroid therapy as listed in his medications portion of the discharge information. His rib pain has been well-controlled with acetaminophen and oxycodone. He did receive a prescription for oxycodone at the time of discharge. I did correctional counselor him about the dangers of mixing alcohol and narcotics. He stated that he would not take pain pills if he was drinking. He has a history of alcohol dependence but there is no evidence for alcohol withdrawal during the course of the hospital stay. He also has tobacco dependence and did not want nicotine replacement during the hospital stay. He had some mild hypokalemia that responded to supplementation. Also of note, was the fall that brought him into the hospital sounded like a syncopal episode. I suspect the episode was caused by hypoxia. We have not seen any arrhythmias on telemetry monitoring and since the oxygenation has been corrected he has done well with his ambulation and has not had a recurrence of symptoms. Today, March 04, 2017 I had a [id number] encounter with Mr. Fu regarding home oxygen. He is a diagnosis of COPD with emphysema. Without supplemental oxygen he desaturated to 86% on room air. This information was obtained on April 03, the day prior to discharge. He is currently requiring 3 L of supplemental oxygen to maintain his saturations. I suspect he will need oxygen for the foreseeable future and possibly indefinitely. - Patient Instructions Diet: Regular Diet as Tolerated Activity: Apply Ice (if you have swelling of your knee), Non Weight Bearing ( right leg) Driving: Do Not Drive (if you are taking pain pills) Showering/Bathing: May Shower Notify Provider of: Fever, Increased Pain, Nausea and/or Vomiting Other/Special Instructions: 1. You were in the hospital for management of pain secondary to multiple right-sided rib fractures as well as a fracture of your femur. The rib fractures will heal over time and no specific treatment is needed. The fracture of your femur is a very small one at the very end of the bone on the outside of your knee. This does not require surgery. You should not bear weight on that right leg until your orthopedic clinic follow-up with Dr. Galindo. I recommend the following medications for pain control: -Take naproxen ( Aleve) 1 tablet in the morning and 1 tablet in the evening to provide a baseline level of pain control. -Use acetaminophen (Tylenol) 650 mg every 4 hours as needed for mild pain. -Use oxycodone every 4 hours as needed for more severe pain. It is very important that you do not mix alcohol and oxycodone as this can reduce your bodies desire to breathe and potentially create a life- threatening situation. 2. While in the hospital we discovered that your oxygen levels were very low secondary to bronchitis with an acute exacerbation of COPD. Your oxygen levels were low enough that I recommend you use oxygen at home. You should use 3 L of oxygen [id number]. You will have both stationary and portable oxygen tanks. The low oxygen levels could explain why you were passing out at home. After hospital discharge you will need 1 additional dose of azithromycin (Wednesday morning) and 7 additional doses of cefdinir (next dose due tonight). These are antibiotics to help treat your bronchitis. You will also need 3 additional doses of prednisone (next dose at suppertime today) to help reduce the inflammation in your lungs caused by the infection. 3. Continue your usual home medications as previously prescribed. 4. Follow up with Shaun Canada and Dr Jeovanny Galindo. You will be contacted with appointment times. 5. Please seek medical attention if you develop fever greater than 101, have severe shortness of breath, severe pain that cannot be controlled with your pills or if you develop chest pain/pressure (other than the pain from her rib fractures) - Discharge Plan Prescriptions/Med Rec: Azithromycin 500 mg PO DAILY #1 tablet Cefdinir [IJD: Cefdinir] 300 mg PO BID #7 capsule oxyCODONE 5 mg PO Q4H PRN #20 tablet PRN Reason: Pain Prednisone [IJD: predniSONE] 20 mg PO BIDAC #3 tablet Home Medications: Home Meds Carvedilol [Coreg] 6.25 mg PO BID 01/26/13 [History] Clopidogrel [Plavix] 75 mg PO DAILY 01/26/13 [History] Nitroglycerin [Nitrostat] 1 tab SL ASDIRECTED PRN 01/26/13 [History] Simvastatin [Zocor] 40 mg PO BEDTIME 01/26/13 [History] Aspirin [Adult Low Dose Aspirin EC] 81 mg PO DAILY 09/27/13 [History] Folic Acid 1 tab PO DAILY 09/27/13 [History] Multivitamin with Minerals [Multiple Vitamin] 1 tab PO DAILY 09/27/13 [History] Thiamine [Vitamin B-1] 100 mg PO DAILY 09/27/13 [History] Cholecalciferol (Vitamin D3) [Vitamin D3] 5,000 units PO DAILY 12/30/16 [History ] Losartan [Cozaar] 100 mg PO DAILY 01/06/17 [History] Ondansetron [Zofran] 4 mg PO Q8H PRN 01/06/17 [History] amLODIPine [Norvasc] 5 mg PO DAILY 01/06/17 [History] Pantoprazole Sodium 40 mg PO DAILY 02/15/18 [History] Azithromycin 500 mg PO DAILY #1 tablet 04/04/17 [Rx] Cefdinir [IJD: Cefdinir] 300 mg PO BID #7 capsule 04/04/17 [Rx] Prednisone [IJD: predniSONE] 20 mg PO BIDAC #3 tablet 04/04/17 [Rx] oxyCODONE 5 mg PO Q4H PRN #20 tablet 04/04/17 [Rx] Patient Handouts: Acute Bronchitis, Adult, [id number]-[id number], Rib Fracture, Easy-to- Read Referrals: Shaun Canada PA [Physician Research Professor] - 04/09/17 (f/u hospital stay for fall with rib fractures and right distal femal fracture as well as bronchitis and copd exacerbation) Jeovanny Galindo DO [Physician] - (3 weeks - f/u hospital stay for right distal- lateral femur fracture) - Discharge Summary/Plan Comment DC Time >30 min.: Yes (40 - setting up home oxygen) - Patient Data Vitals - Most Recent: Last Vital Signs Temp 37.3 C 04/04/17 07:09 Pulse 80 04/04/17 08:00 Resp 18 04/04/17 07:09 BP 165/82 H 04/04/17 08:01 Pulse Ox 93 L 04/04/17 07:09 Weight - Most Recent: 55 kg I&O - Last 24 hours: Intake & Output 04/03/17 04/04/17 04/04/17 22:59 06:59 14:59 Intake Total 1750 300 Output Total 1000 250 Balance 750 50 Lab Results - Last 24 hrs: Laboratory Results - last 24 hr 04/04/17 04/04/17 Range/Units 05:06 05:06 WBC 13.6 H (4.5-11.0) K/uL RBC 3.62 L (4.30-5.90) M/uL Hgb 12.5 (12.0-15.0) g/dL Hct 36.5 L (40.0-54.0) % MCV 101 H (80-98) fL MCH 35 H (27-31) pg MCHC 34 (32-36) % Plt Count 166 (150-400) K/uL Sodium 134 L (140-148) mmol/L Potassium 3.3 L (3.6-5.2) mmol/L Chloride 99 L (100-108) mmol/L Carbon Dioxide 27 (21-32) mmol/L Anion Gap 11.3 (5.0-14.0) mmol/L BUN 7 (7-18) mg/dL Creatinine 0.6 L (0.8-1.3) mg/dL Est Cr Clr Drug Dosing 103.13 mL/min Estimated GFR (MDRD) > 60 (>60) Glucose 131 H (74-106) mg/dL Calcium 8.7 (8.5-10.1) mg/dL NILO Results - Last 24 hrs: Microbiology 04/01/17 13:17 Gram Stain - Final Sputum - Expectorated Respiratory Culture - Final NORMAL RESPIRATORY [facility] 2 DAYS Med Orders - Current: Current Medications Acetaminophen (Tylenol) 650 mg PO Q4H PRN PRN Reason: Pain/Fever Last Admin: 04/03/17 19:30 Dose: 650 mg Albuterol (Proventil Neb Soln) 2.5 mg NEB Q4H PRN PRN Reason: Shortness Of Breath/wheezing Last Admin: 04/01/17 12:03 Dose: 2.5 mg Albuterol/Ipratropium (Duoneb 3.0-0.5 Mg/3 Ml) 3 ml NEB QIDRT [facility] Last Admin: 04/04/17 07:23 Dose: 3 ml Amlodipine Besylate (Norvasc) 5 mg PO DAILY [facility] Last Admin: 04/04/17 08:01 Dose: 5 mg Aspirin (Halfprin) 81 mg PO DAILY [facility] Last Admin: 04/04/17 08:01 Dose: 81 mg Azithromycin (Zithromax) 500 mg PO DAILY [facility] Stop: 04/05/17 09:01 Last Admin: 04/04/17 08:02 Dose: 500 mg Bisacodyl (Dulcolax) 5 mg PO DAILY PRN PRN Reason: Constipation Carvedilol (Coreg) 6.25 mg PO BID [facility] Last Admin: 04/04/17 08:00 Dose: 6.25 mg Cefdinir (Omnicef) 300 mg PO BID [facility] Last Admin: 04/04/17 08:01 Dose: 300 mg Clopidogrel Bisulfate (Plavix) 75 mg PO DAILY [facility] Last Admin: 04/04/17 08:01 Dose: 75 mg Docusate Sodium (Colace) 100 mg PO BID PRN PRN Reason: Constipation Last Admin: 04/04/17 08:02 Dose: 100 mg Folic Acid (Folic Acid) 1 mg PO DAILY [facility] Last Admin: 04/04/17 08:01 Dose: 1 mg Lorazepam (Ativan) 0.5 mg PO Q4H PRN PRN Reason: Anxiety Last Admin: 04/03/17 19:30 Dose: 0.5 mg Losartan Potassium (Cozaar) 100 mg PO DAILY [facility] Last Admin: 04/04/17 08:01 Dose: 100 mg Multivitamins/Minerals (Thera M Plus) 1 tab PO DAILY [facility] Last Admin: 04/04/17 08:01 Dose: 1 tab Nitroglycerin (Nitrostat) 0.4 mg SL ASDIRECTED PRN PRN Reason: Chest Pain Beer 1 each PO TID PRN PRN Reason: craving Last Admin: 04/03/17 17:53 Dose: 1 each Ondansetron HCl (Zofran Odt) 4 mg PO Q6H PRN PRN Reason: Nausea able to take PO Ondansetron HCl (Zofran) 4 mg IVPUSH Q4H PRN PRN Reason: Nausea/Vomiting Last Admin: 04/01/17 12:59 Dose: 4 mg Oxycodone HCl (Oxycodone) 5 mg PO Q4H PRN PRN Reason: Pain Last Admin: 04/04/17 04:51 Dose: 5 mg Pantoprazole Sodium (Protonix) 40 mg PO ACBREAKFAST [facility] Last Admin: 04/04/17 07:20 Dose: 40 mg Prednisone (Prednisone) 20 mg PO BIDAC [facility] Last Admin: 04/04/17 07:20 Dose: 20 mg Simvastatin (Zocor) 40 mg PO BEDTIME [facility] Last Admin: 04/03/17 21:19 Dose: 40 mg Thiamine HCl (Vitamin B-1) 100 mg PO DAILY [facility] Last Admin: 04/04/17 08:01 Dose: 100 mg Zolpidem Tartrate (Ambien) 5 mg PO BEDTIME PRN PRN Reason: Sleep Discontinued Medications Albuterol/Ipratropium (Duoneb 3.0-0.5 Mg/3 Ml) 3 ml NEB ONETIME ONE Stop: 04/01/17 00:28 Last Admin: 04/01/17 00:32 Dose: 3 ml Hydromorphone HCl (Dilaudid) 1 mg IVPUSH Q2H PRN PRN Reason: Pain Last Admin: 04/01/17 06:13 Dose: 1 mg Hydromorphone HCl (Dilaudid) 1 mg IVPUSH Q2H PRN PRN Reason: Pain (moderate 4-6) Multivitamins/Minerals 10 ml/Thiamine HCl 100 mg/ Folic Acid 1 mg/ Magnesium Sulfate 3 gm/ Sodium Chloride 1,017.2 mls @ 999 mls/hr IV ASDIRECTED [facility] Stop: 04/01/17 04:32 Last Admin: 04/01/17 04:05 Dose: 999 mls/hr Sodium Chloride (Normal Saline) 1,000 mls @ 125 mls/hr IV ASDIRECTED [facility] Last Admin: 04/01/17 04:35 Dose: 125 mls/hr Sodium Chloride (Normal Saline) 1,000 mls @ 125 mls/hr IV ASDIRECTED [facility] Sodium Chloride (Normal Saline) 80 mls @ 4 mls/sec IV ASDIRECTED [facility] Stop: 04/01/17 23:00 Last Admin: 04/01/17 12:48 Dose: 4 mls/sec Azithromycin 500 mg/ Sodium (Chloride) 250 mls @ 250 mls/hr IV Q24H [facility] Last Admin: 04/02/17 13:21 Dose: 250 mls/hr Ceftriaxone Sodium 2 gm/ (Sodium Chloride) 50 mls @ 100 mls/hr IV Q24H [facility] Last Admin: 04/02/17 15:31 Dose: 100 mls/hr Potassium Chloride 20 meq/Lidocaine HCl 2 ml/ Sodium Chloride 112 mls @ 56 mls/ hr IV Q2H [facility] Stop: 04/01/17 19:59 Last Admin: 04/01/17 17:50 Dose: 56 mls/hr Magnesium Sulfate 2 gm/ Premix 50 mls @ 12.5 mls/hr IV Q6H [facility] Stop: 04/02/17 18:59 Last Admin: 04/02/17 15:34 Dose: 12.5 mls/hr Iopamidol (Isovue-370 (76%)) 100 ml IV . DIRECTED [facility] Stop: 04/01/17 23:00 Last Admin: 04/01/17 12:48 Dose: 100 ml Lorazepam (Ativan) 1 mg IV Q6H PRN PRN Reason: Nausea/Vomiting Lorazepam (Ativan) 0.5 mg IVPUSH Q4H PRN PRN Reason: Anxiety Lorazepam (Ativan) 0.5 mg IVPUSH Q2H PRN PRN Reason: Anxiety Methylprednisolone Sodium Succinate (Solu-Medrol) 125 mg IVPUSH ONETIME ONE Stop: 04/01/17 13:31 Last Admin: 04/01/17 13:43 Dose: 125 mg Methylprednisolone Sodium Succinate (Solu-Medrol) 62.5 mg IVPUSH Q8H [facility] Last Admin: 04/03/17 05:06 Dose: 62.5 mg Oxycodone/Acetaminophen (Percocet 325-5 Mg) 1 tab PO Q4H PRN PRN Reason: Pain (moderate 4-6) Last Admin: 04/03/17 08:02 Dose: 1 tab Pantoprazole Sodium (Protonix Iv) 40 mg IVPUSH ONETIME ONE Stop: 04/01/17 03:31 Last Admin: 04/01/17 04:05 Dose: 40 mg Pantoprazole Sodium (Protonix Iv) 40 mg IVPUSH Q24H [facility] Potassium Chloride (Klor-Con M20) 40 meq PO ONETIME ONE Stop: 04/01/17 09:01 Last Admin: 04/01/17 09:53 Dose: 40 meq Potassium Chloride (Klor-Con M20) 40 meq PO ONETIME ONE Stop: 04/03/17 09:01 Last Admin: 04/03/17 10:07 Dose: 40 meq Potassium Chloride (Klor-Con M20) 40 meq PO ONETIME ONE Stop: 04/04/17 08:31 Last Admin: 04/04/17 08:05 Dose: 40 meq - Exam Quality Assessment: Reports: Supplemental Oxygen General: Reports: Alert, Oriented, Cooperative, No Acute Distress Neck: Reports: Supple Lungs: Reports: Normal Respiratory Effort, Decreased Breath Sounds (mild right lung base), Rhonchi (mild end exp left upper chest). Denies: Crackles Cardiovascular: Reports: Regular Rate GI/Abdominal Exam: Soft, No Distention Extremities: No Pedal Edema Psy/Mental Status: Reports: Alert, Normal Affect *Q Meaningful Use (DIS) - VTE *Q VTE Criteria *Q: - Stroke *Q Stroke Criteria *Q: - AMI *Q AMI Criteria *Q:
== END 2017-04-04 10:45 | disposition home or self-care (01) | DRG 190 ==
LOC: JP.ED 00:12 → JP.MS 02:24 → JP.ICU 13:00 → JP.MS 04-03 15:42
PROVIDERS: ADMIT Internal Medicine; ATTEND Internal Medicine
DX: J44.0 Chronic obstructive pulmonary disease with (acute) lower respiratory infection (principal); J96.01 Acute respiratory failure with hypoxia; S22.41XA Multiple fractures of ribs, right side, initial encounter for closed fracture; R09.02 Hypoxemia; S79.101A Unspecified physeal fracture of lower end of right femur, initial encounter for closed fracture; J20.9 Acute bronchitis, unspecified; Y90.1 Blood alcohol level of 20-39 mg/100 ml; J44.1 Chronic obstructive pulmonary disease with (acute) exacerbation; I10 Essential (primary) hypertension; F17.210 Nicotine dependence, cigarettes, uncomplicated; F10.129 Alcohol abuse with intoxication, unspecified; F10.229 Alcohol dependence with intoxication, unspecified; W19.XXXA Unspecified fall, initial encounter; Y92.000 Kitchen of unspecified non-institutional (private) residence as the place of occurrence of the external cause; R07.89 Other chest pain; Z99.81 Dependence on supplemental oxygen; F10.220 Alcohol dependence with intoxication, uncomplicated; I25.2 Old myocardial infarction; Z95.5 Presence of coronary angioplasty implant and graft; E78.00 Pure hypercholesterolemia, unspecified; Z86.718 Personal history of other venous thrombosis and embolism; H54.7 Unspecified visual loss; Z79.82 Long term (current) use of aspirin
CPT/HCPCS: 36415; 71250; 73552 ×2; 73562 ×2; 73700; 80048; 82550; 85025; 94640; 99284; 99285; G0480; J7620; 36600; 71275; 71275-26; 74177; 74177-26; 82803; 83735; 85027; 87070; 87205; 97162-GP; 97165-GO; 97530-GP; 97535-GP; A9270-GY; C9113; J0456; J0696; J1170; J2405; J2930; J3411; J3475; J3480; J3490; J7030; J7040; J7050; Q9967

== ENCOUNTER 2018-03-30 16:42 | Observation (INO) | payer MEDICARE, MEDICAID ==
[2018-03-30] MEDS ORDERED: Aspirin 81 MG Tab.Chew PO ONE (17:03)
[2018-03-30] MEDS ORDERED: Sodium Chloride 0.9% 10 ML Syringe FLUSH PRN (17:03)
--- NOTE | 2018-03-30 17:06 | EDM.PDOC ---
ED HPI GENERAL MEDICAL PROBLEM - General Chief Complaint: Chest Pain Stated Complaint: CHEST PAIN AND BLOODY NOSE Time Seen by Provider: 03/30/18 16:57 Source of Information: Reports: Patient, Old Records, RN Notes Reviewed History Limitations: Reports: No Limitations - History of Present Illness INITIAL COMMENTS - FREE TEXT/NARRATIVE: 62-year-old gentleman presents emergency department today complaint of chest pain, states the chest pain for 2 days does have a known history coronary artery disease with stenting 2 years ago. He states the pain comes and goes he is chest pain-free at this time describes as sharp in nature predominate over the left side doesn't short of breath and is diaphoretic Chest Pain Score (Numeric/FACES): 3 - Related Data Allergies Allergy/AdvReac Type Severity Reaction Status Date / Time No Known Allergies Allergy Verified 03/30/18 16:55 Home Meds: Home Meds Carvedilol [Coreg] 6.25 mg PO BID 01/26/13 [History] Clopidogrel [Plavix] 75 mg PO DAILY 01/26/13 [History] Nitroglycerin [Nitrostat] 1 tab SL ASDIRECTED PRN 01/26/13 [History] Simvastatin [Zocor] 40 mg PO BEDTIME 01/26/13 [History] Aspirin [Adult Low Dose Aspirin EC] 81 mg PO DAILY 09/27/13 [History] Folic Acid 1 tab PO DAILY 09/27/13 [History] Multivitamin with Minerals [Multiple Vitamin] 1 tab PO DAILY 09/27/13 [History] Thiamine [Vitamin B-1] 100 mg PO DAILY 09/27/13 [History] Cholecalciferol (Vitamin D3) [Vitamin D3] 5,000 units PO DAILY 12/30/16 [History ] Losartan [Cozaar] 100 mg PO DAILY 01/06/17 [History] Ondansetron [Zofran] 4 mg PO Q8H PRN 01/06/17 [History] amLODIPine [Norvasc] 5 mg PO DAILY 01/06/17 [History] Pantoprazole Sodium 40 mg PO DAILY 04/01/17 [History] Azithromycin 500 mg PO DAILY #1 tablet 04/04/17 [Rx] Cefdinir [IJD: Cefdinir] 300 mg PO BID #7 capsule 04/04/17 [Rx] Prednisone [IJD: predniSONE] 20 mg PO BIDAC #3 tablet 04/04/17 [Rx] oxyCODONE 5 mg PO Q4H PRN #20 tablet 04/04/17 [Rx] Past Medical History HEENT History: Reports: Impaired Vision Cardiovascular History: Reports: Blood Clots/VTE/DVT, CAD, High Cholesterol, Hypertension, AL, SOB on Exertion, Stents Respiratory History: Reports: SOB Gastrointestinal History: Reports: GERD Musculoskeletal History: Reports: Back Pain, Chronic, Fracture, Other (See Below ) Other Musculoskeletal History: fx right femur, no surgery to repair this. Neurological History: Reports: Other (See Below) Other Neuro History: has been passing out lately. Psychiatric History: Reports: Addiction, Other (See Below) Other Psychiatric History: ETOH Hematologic History: Reports: Anemia - Infectious Disease History Infectious Disease History: Reports: Chicken Pox Other Infectious Disease History: doesn't know - Past Surgical History Cardiovascular Surgical History: Reports: Coronary Artery Stent, Vascular Surgery GI Surgical History: Reports: Colonoscopy, Hernia, Inguinal Neurological Surgical History: Reports: None Social & Family History - Family History Family Medical History: Unobtainable - Tobacco Use Smoking Status *Q: Heavy Tobacco Smoker Years of Tobacco use: 50 Packs/Tins Daily: 1 - Caffeine Use Caffeine Use: Reports: Coffee Caffeine Use Comment: about a pot a day - Alcohol Use Days Per Week of Alcohol Use: 7 Number of Drinks Per Day: 6 Total Drinks Per Week: 42 - Recreational Drug Use Recreational Drug Use: No - Living Situation & Occupation Living situation: Reports: Single, Alone Occupation: Unemployed (lives near family. no children) ED ROS GENERAL - Review of Systems Review Of Systems: See Below Constitutional: Reports: Diaphoresis HEENT: Reports: No Symptoms Respiratory: Reports: Shortness of Breath Cardiovascular: Reports: Chest Pain, Dyspnea on Exertion GI/Abdominal: Reports: No Symptoms : Reports: No Symptoms Musculoskeletal: Reports: No Symptoms Skin: Reports: No Symptoms Neurological: Reports: No Symptoms ED EXAM, GENERAL - Physical Exam Exam: See Below Exam Limited By: No Limitations General Appearance: Alert, WD/WN, No Apparent Distress Throat/Mouth: Normal Inspection, Normal Lips, Normal Teeth, Normal Gums, Normal Oropharynx, Normal Voice, No Airway Compromise Respiratory/Chest: No Respiratory Distress, Lungs Clear, Normal Breath Sounds, No Accessory Muscle Use, Other (Point tenderness to left side of the chest midclavicular line T5 region) Cardiovascular: Regular Rate, Rhythm, No Murmur GI/Abdominal: Soft, Non-Tender Back Exam: Normal Inspection, Full Range of Motion. No: CVA Tenderness (R), CVA Tenderness (L) Extremities: Non-Tender, No Pedal Edema Course - Vital Signs Last Recorded V/S: Last Vital Signs Temp 98.7 F 03/30/18 16:50 Pulse 79 03/30/18 16:50 Resp 18 03/30/18 16:50 BP 172/84 H 03/30/18 16:50 Pulse Ox 97 03/30/18 16:50 - Orders/Labs/Meds Orders: Active Orders 24 hr Category Date Time Status Cardiac Monitoring [RC] .As Directed Care 03/30/18 17:03 Active EKG Documentation Completion [RC] ASDIRECTED Care 03/30/18 17:04 Active Peripheral IV Care [RC] . DIRECTED Care 03/30/18 17:04 Active Sodium Chloride 0.9% [Saline Flush] Med 03/30/18 17:03 Active 10 ml FLUSH ASDIRECTED PRN Peripheral IV Insertion Adult [OM.PC] Stat Oth 03/30/18 17:03 Ordered Saline Lock Insert [OM.PC] Stat Oth 03/30/18 17:03 Ordered EKG 12 Lead [EK] Stat Ther 03/30/18 17:04 Ordered Medication Orders Sodium Chloride (Saline Flush) 10 ml FLUSH ASDIRECTED PRN PRN Reason: Keep Vein Open Last Admin: 03/30/18 17:15 Dose: 10 ml Labs: Laboratory Tests 03/30/18 03/30/18 Range/Units 17:03 17:03 WBC 5.5 (4.5-11.0) K/uL RBC 3.53 L (4.30-5.90) M/uL Hgb 12.0 (12.0-15.0) g/dL Hct 35.6 L (40.0-54.0) % MCV 101 H (80-98) fL MCH 34 H (27-31) pg MCHC 34 (32-36) % Plt Count 159 (150-400) K/uL Neut % (Auto) 51 (36-66) % Lymph % (Auto) 32 (24-44) % Collier % (Auto) 11 H (2-6) % Eos % (Auto) 4 (2-4) % Baso % (Auto) 2 H (0-1) % Sodium 132 L (140-148) mmol/L Potassium 3.0 L (3.6-5.2) mmol/L Chloride 94 L (100-108) mmol/L Carbon Dioxide 28 (21-32) mmol/L Anion Gap 13.0 (5.0-14.0) mmol/L BUN 5 L (7-18) mg/dL Creatinine 0.8 (0.8-1.3) mg/dL Est Cr Clr Drug Dosing 75.60 mL/min Estimated GFR (MDRD) > 60 (>60) Glucose 124 H (74-106) mg/dL Calcium 9.1 (8.5-10.1) mg/dL Total Bilirubin 0.7 (0.2-1.0) mg/dL AST 27 (15-37) U/L ALT 20 (12-78) U/L Alkaline Phosphatase 62 (46-116) U/L Troponin I < 0.017 (0.000-0.056) ng/mL Total Protein 7.5 (6.4-8.2) g/dL Albumin 3.4 (3.4-5.0) g/dL Globulin 4.1 H (2.3-3.5) g/dL Albumin/Globulin Ratio 0.8 L (1.2-2.2) Meds: Medications Generic Name Dose Route Start Last Admin Trade Name Freq PRN Reason Stop Dose Admin Sodium Chloride 10 ml 03/30/18 17:03 03/30/18 17:15 Saline Flush FLUSH 10 ml ASDIRECTED PRN Administration Keep Vein Open Discontinued Medications Generic Name Dose Route Start Last Admin Trade Name Freq PRN Reason Stop Dose Admin Aspirin 324 mg 03/30/18 17:03 03/30/18 17:15 Aspirin PO 03/30/18 17:04 324 mg ONETIME ONE Administration Departure - Departure Time of Disposition: 18:12 Disposition: Refer to Observation Condition: Fair Clinical Impression: Chest pain Qualifiers: Chest pain type: unspecified Qualified Code(s): R07.9 - Chest pain, unspecified Referrals: PCP,None [Primary Care Provider] - Forms: ED Department Discharge - My Orders Last 24 Hours: My Active Orders 03/30/18 17:03 Cardiac Monitoring [RC] .As Directed Sodium Chloride 0.9% [Saline Flush] 10 ml FLUSH ASDIRECTED PRN Peripheral IV Insertion Adult [OM.PC] Stat Saline Lock Insert [OM.PC] Stat 03/30/18 17:04 EKG Documentation Completion [RC] ASDIRECTED Peripheral IV Care [RC] . DIRECTED EKG 12 Lead [EK] Stat - Assessment/Plan Last 24 Hours: My Active Orders 03/30/18 17:03 Cardiac Monitoring [RC] .As Directed Sodium Chloride 0.9% [Saline Flush] 10 ml FLUSH ASDIRECTED PRN Peripheral IV Insertion Adult [OM.PC] Stat Saline Lock Insert [OM.PC] Stat 03/30/18 17:04 EKG Documentation Completion [RC] ASDIRECTED Peripheral IV Care [RC] . DIRECTED EKG 12 Lead [EK] Stat Plan: Assessment Acuity = acute Site and laterality = chest pain complicated patient with known history of coronary artery disease heart score of 5 Etiology = unclear etiology Manifestations = none Location of injury = Home Lab values = CBC unremarkable sodium low at 132 consistent hyponatremia potassium low at 3.0 consistent hypokalemia initial troponin was negative EKG demonstrates minimal ST changes less than 1 mm leads 23 aVF similar to prior EKG in 2013, chest x-ray no acute process per radiology Plan Called discussed case hospitalist environmental health safety manager at [phone] kindly agreed to presents emergency department and evaluate patient for admission This note was dictated using [employer] voice recognition software please call with any questions on syntax or grammar.
--- NOTE | 2018-03-30 17:56 | CRLCR ---
INDICATION: Chest pain TECHNIQUE: Chest 1 view. COMPARISON: CT scan chest 04/01/2017 FINDINGS: Cardiovascular and mediastinum: Heart size and vasculature are normal in caliber and appearance. Mediastinum is within normal limits. Lungs and pleural space: Lungs are clear. No sign of infiltrate or mass. No sign of pleural effusion. No pneumothorax. Bones and soft tissues: Remote healed right lower rib fractures.. IMPRESSION: Unremarkable chest. Dictated by Gabriel Troy MD @ Mar 30 2018 5:54PM Signed by Dr. Gabriel Troy @ Mar 30 2018 5:54PM
[2018-03-30] MEDS ORDERED: Nitroglycerin 0.4 MG Tab.SL SL PRN (19:53)
[2018-03-30] MEDS ORDERED: Morphine 2 MG/ML Syringe IVPUSH PRN (19:53)
[2018-03-30] MEDS ORDERED: Acetaminophen 325 MG Tab PO PRN (19:53)
[2018-03-30] MEDS ORDERED: Docusate Sodium 100 MG Cap PO PRN (19:53)
[2018-03-30] MEDS ORDERED: oxyCODONE 5 MG Tab PO PRN (19:53)
[2018-03-30] MEDS ORDERED: Albuterol 0.083% 2.5 MG/3 ML Neb Soln NEB PRN (19:53)
[2018-03-30] MEDS ORDERED: Ondansetron 4 MG Tab.DIS PO PRN (19:53)
[2018-03-30] MEDS ORDERED: Potassium Chloride 20 MEQ in Premix Bag 1 BAG IV ONE (19:53)
[2018-03-30] MEDS ORDERED: cefTRIAXone 1 GM in Sodium Chloride 0.9% 50 ML IV ONE (20:00)
[2018-03-30] MEDS ORDERED: methylPREDNISolone Sodium Succinate 125 MG/2 ML SDV IVPUSH ONE (20:00)
[2018-03-30] MEDS: Folic Acid 1 MG Tab PO SCH (20:11)
[2018-03-30] MEDS: Albuterol/Ipratropium 3.0-0.5 MG/3 ML Neb Soln NEB SCH (20:22)
[2018-03-30] MEDS: Codeine/guaiFENesin 100mg-10 MG/5 ML Syrup 10 ML Cup PO SCH (20:22)
[2018-03-30] MEDS: Sodium Chloride 0.9% 1,000 ML IV SCH (20:34)
[2018-03-30] MEDS ORDERED: Simvastatin 20 MG Tab PO SCH (21:00)
[2018-03-30] MEDS ORDERED: Azithromycin 500 MG in Sodium Chloride 0.9% 250 ML IV SCH (21:00)
[2018-03-30] MEDS ORDERED: Carvedilol 6.25 MG Tab PO SCH (21:00)
--- NOTE | 2018-03-30 21:07 | PCM.HP ---
H&P History of Present Illness - General Date of Service: 03/30/18 Admit Problem/Dx: Admission Diagnosis/Problem Admission Diagnosis/Problem Chest pain, rule out acute myocardial infarction Source of Information: Patient, Family (Nephew), Provider, RN History Limitations: Reports: No Limitations - History of Present Illness Initial Comments - Free Text/Narative: History of Present Illness INITIAL COMMENTS - FREE TEXT/NARRATIVE: 62-year-old gentleman presents emergency department today complaint of chest pain, states the chest pain for 2 days does have a known history coronary artery disease with stenting 2 years ago. He states the pain comes and goes he is chest pain-free at this time describes as sharp in nature predominate over the left side chest. Plan: Site and laterality = chest pain complicated patient with known history of coronary artery disease heart score of 5 Etiology = unclear etiology Labs and imaging: Lab values = CBC unremarkable sodium low at 132 consistent hyponatremia potassium low at 3.0 consistent hypokalemia initial troponin was negative EKG demonstrates minimal ST changes less than 1 mm leads 23 aVF similar to prior EKG in 2012, chest x-ray no acute process per radiology Plan Called discussed case hospitalist software controls engineer at 1810 kindly agreed to presents emergency department and evaluate patient for admission Onset of Symptoms: Reports: Gradual Duration of Symptoms: Reports: Day(s): (2), Waxing/Waning (reports no chest pain at rest, with activity chest pain with shortness of breath) Severity: Moderate Improves with: Reports: Rest Worsens with: Reports: Movement Associated Symptoms: Reports: Chest Pain (left upper chest), Cough (frequent cough due to COPD and smoking), Loss of Appetite, Nausea/Vomiting (chronic nausea daily), Shortness of Breath, Weakness Chest Pain Score (Numeric/FACES): 3 - Related Data Allergies/Adverse Reactions: Allergies Allergy/AdvReac Type Severity Reaction Status Date / Time No Known Allergies Allergy Verified 03/30/18 16:55 Home Medications: Home Meds Carvedilol [Coreg] 6.25 mg PO BID 01/26/13 [History] Clopidogrel [Plavix] 75 mg PO DAILY 01/26/13 [History] Nitroglycerin [Nitrostat] 1 tab SL ASDIRECTED PRN 01/26/13 [History] Simvastatin [Zocor] 40 mg PO BEDTIME 01/26/13 [History] Aspirin [Adult Low Dose Aspirin EC] 81 mg PO DAILY 09/27/13 [History] Folic Acid 1 tab PO DAILY 09/27/13 [History] Multivitamin with Minerals [Multiple Vitamin] 1 tab PO DAILY 09/27/13 [History] Thiamine [Vitamin B-1] 100 mg PO DAILY 09/27/13 [History] Cholecalciferol (Vitamin D3) [Vitamin D3] 5,000 units PO DAILY 12/30/16 [History ] Losartan [Cozaar] 100 mg PO DAILY 01/06/17 [History] Ondansetron [Zofran] 4 mg PO Q8H PRN 01/06/17 [History] amLODIPine [Norvasc] 5 mg PO DAILY 01/06/17 [History] Pantoprazole Sodium 40 mg PO DAILY 04/01/17 [History] Azithromycin 500 mg PO DAILY #1 tablet 04/04/17 [Rx] Cefdinir [IJD: Cefdinir] 300 mg PO BID #7 capsule 04/04/17 [Rx] Prednisone [IJD: predniSONE] 20 mg PO BIDAC #3 tablet 04/04/17 [Rx] oxyCODONE 5 mg PO Q4H PRN #20 tablet 04/04/17 [Rx] Past Medical History HEENT History: Reports: Impaired Vision Cardiovascular History: Reports: Blood Clots/VTE/DVT, CAD, High Cholesterol, Hypertension, OK, SOB on Exertion, Stents Respiratory History: Reports: SOB Gastrointestinal History: Reports: GERD Musculoskeletal History: Reports: Back Pain, Chronic, Fracture, Other (See Below ) Other Musculoskeletal History: fx right femur, no surgery to repair this. Neurological History: Reports: Other (See Below) Other Neuro History: has been passing out lately. Psychiatric History: Reports: Addiction, Other (See Below) Other Psychiatric History: ETOH Hematologic History: Reports: Anemia - Infectious Disease History Infectious Disease History: Reports: Chicken Pox Other Infectious Disease History: doesn't know - Past Surgical History Cardiovascular Surgical History: Reports: Coronary Artery Stent, Vascular Surgery Respiratory Surgical History: Reports: None GI Surgical History: Reports: Colonoscopy, Hernia, Inguinal Neurological Surgical History: Reports: None Social & Family History - Family History Family Medical History: Unobtainable - Tobacco Use Smoking Status *Q: Current Every Day Smoker Years of Tobacco use: 50 Packs/Tins Daily: 1 Used Tobacco, but Quit: No - Caffeine Use Caffeine Use: Reports: Coffee Caffeine Use Comment: 10cups/day - Alcohol Use Days Per Week of Alcohol Use: 7 Number of Drinks Per Day: 6 Total Drinks Per Week: 42 Date of Last Drink: 03/27/18 Time of Last Drink: 12:00 - Recreational Drug Use Recreational Drug Use: No - Living Situation & Occupation Living situation: Reports: Single, Alone Occupation: Unemployed (lives near family. no children) H&P Review of Systems - Review of Systems: Review Of Systems: See Below General: Reports: Fatigue, Decreased Appetite, Other (decreased appetite for "a long time") HEENT: Reports: Glasses, Other (dentures) Pulmonary: Reports: Shortness of Breath (COPD, was on two antibiotics but stopped on Wednesday because just didn't feel good.), Wheezing, Pleuritic Chest Pain, Cough, Sputum (increased cough.), Other (home oxygen 3 liter at night, and during the day as needed. doesnt use too much during the day because of smoking. ) Cardiovascular: Reports: Chest Pain (left upper chest), Dyspnea on Exertion ( since Wednesday ), Other (hx of OK 2018 with stents x 2) Gastrointestinal: Reports: Decreased Appetite (does feel hungry, doesn't eat, doesn't feel like cooking, lives alone. drinking alcohol daily, quit on Wednesday.) , Nausea (daily) Genitourinary: Reports: No Symptoms Musculoskeletal: Reports: Other (arthritis) Skin: Reports: Other (dry ulcer on left anterior ankle. circular <.05cm in size. ) Psychiatric: Reports: Other (daily ETOH use, stopped on Wednesday due to not feeling well.) Neurological: Reports: Weakness Hematologic/Lymphatic: Reports: Easy Bleeding (epitaxis two days in a row.) Immunologic: Reports: No Symptoms Exam - Exam Exam: See Below - Vital Signs Vital Signs: Last Vital Signs Temp 36.9 C 03/30/18 20:00 Pulse 71 03/30/18 20:23 Resp 18 03/30/18 20:00 BP 176/78 H 03/30/18 20:23 Pulse Ox 97 03/30/18 20:39 Weight: 54.431 kg - Exam Quality Assessment: Supplemental Oxygen General: Alert, Oriented, Cooperative, Other (appears frail and old than stated age.) HEENT: PERRLA, EOMI, Glasses, Other (dentures) Neck: Supple, Trachea Midline, Full Range of Motion Lungs: Decreased Breath Sounds, Rales (bilateral), Wheezing (bilateral) Cardiovascular: Regular Rate, Regular Rhythm, Normal S1, Normal S2 GI/Abdominal Exam: Normal Bowel Sounds, Tender (right lower quadrant, Mr. Fu reports pain x 2 years since had mesh. unchanged). No: Distended (flat ) (Male) Exam: Deferred Rectal (Males) Exam: Deferred Back Exam: Normal Inspection, Full Range of Motion Extremities: Normal Range of Motion, Non-Tender, No Pedal Edema, Normal Capillary Refill Peripheral Pulses: 2+: Radial (L), Radial (R), Posterior Tibial (L), Posterior Tibial (R) Skin: Other (left leg with small dry ulcer to anterior ankle. red, dry, no discharge.) Neurological: Strength Equal Bilateral, Normal Speech, Normal Tone Neuro Extensive - Mental Status: Alert, Oriented x3, Normal Mood/Affect - Patient Data Lab Results Last 24 hrs: Laboratory Results - last 24 hr 03/30/18 03/30/18 Range/Units 17:03 17:03 WBC 5.5 (4.5-11.0) K/uL RBC 3.53 L (4.30-5.90) M/uL Hgb 12.0 (12.0-15.0) g/dL Hct 35.6 L (40.0-54.0) % MCV 101 H (80-98) fL MCH 34 H (27-31) pg MCHC 34 (32-36) % Plt Count 159 (150-400) K/uL Neut % (Auto) 51 (36-66) % Lymph % (Auto) 32 (24-44) % [place] % (Auto) 11 H (2-6) % Eos % (Auto) 4 (2-4) % Baso % (Auto) 2 H (0-1) % Sodium 132 L (140-148) mmol/L Potassium 3.0 L (3.6-5.2) mmol/L Chloride 94 L (100-108) mmol/L Carbon Dioxide 28 (21-32) mmol/L Anion Gap 13.0 (5.0-14.0) mmol/L BUN 5 L (7-18) mg/dL Creatinine 0.8 (0.8-1.3) mg/dL Est Cr Clr Drug Dosing 75.60 mL/min Estimated GFR (MDRD) > 60 (>60) Glucose 124 H (74-106) mg/dL Calcium 9.1 (8.5-10.1) mg/dL Total Bilirubin 0.7 (0.2-1.0) mg/dL AST 27 (15-37) U/L ALT 20 (12-78) U/L Alkaline Phosphatase 62 (46-116) U/L Troponin I < 0.017 (0.000-0.056) ng/mL Total Protein 7.5 (6.4-8.2) g/dL Albumin 3.4 (3.4-5.0) g/dL Globulin 4.1 H (2.3-3.5) g/dL Albumin/Globulin Ratio 0.8 L (1.2-2.2) Result Diagrams: 03/30/18 17:03 03/30/18 17:03 - Problem List (1) Chest pain, rule out acute myocardial infarction SNOMED Code(s): 33680478 ICD Code: R07.9 - CHEST PAIN, UNSPECIFIED Status: Acute Priority: High Current Visit: Yes (2) COPD (chronic obstructive pulmonary disease) SNOMED Code(s): 62524002 ICD Code: J44.9 - CHRONIC OBSTRUCTIVE PULMONARY DISEASE, UNSPECIFIED Status : Chronic Priority: High Current Visit: Yes Qualifiers: COPD type: unspecified COPD Qualified Code(s): J44.9 - Chronic obstructive pulmonary disease, unspecified (3) Alcohol dependence SNOMED Code(s): 61922087 ICD Code: F10.20 - ALCOHOL DEPENDENCE, UNCOMPLICATED Status: Chronic Priority: Medium Current Visit: Yes Qualifiers: Substance use status: with intoxication Complication of substance-induced condition: uncomplicated Qualified Code(s): F10.220 - Alcohol dependence with intoxication, uncomplicated (4) Hypokalemia SNOMED Code(s): 22814054 ICD Code: E87.6 - HYPOKALEMIA Status: Acute Priority: Medium Current Visit: Yes (5) Tobacco dependence SNOMED Code(s): 77499307 ICD Code: F17.200 - NICOTINE DEPENDENCE, UNSPECIFIED, UNCOMPLICATED Status : Chronic Priority: Medium Current Visit: Yes Problem List Initiated/Reviewed/Updated: Yes Orders Last 24hrs: Active Orders 24 hr Category Date Time Status Cardiac Monitoring [RC] .As Directed Care 03/30/18 17:03 Active Cardiac Monitoring [RC] CONTINUOUS Care 03/30/18 19:53 Active Intake and Output [RC] QSHIFT Care 03/30/18 19:53 Active Notify Provider Vital Signs [RC] ASDIRECTED Care 03/30/18 19:53 Active Oxygen Therapy [RC] PRN Care 03/30/18 19:53 Active Pulse Oximetry [RC] CONTINUOUS Care 03/30/18 19:53 Active RT Aerosol Therapy [RC] ASDIRECTED Care 03/30/18 19:53 Active Up ad Marilyn [RC] ASDIRECTED Care 03/30/18 19:53 Active VTE/DVT Education [RC] Per Unit Routine Care 03/30/18 19:53 Active Vital Signs [RC] Q4H Care 03/30/18 19:53 Active Regular Diet [DIET] Diet 03/30/18 Dinner Active BASIC METABOLIC PANEL,BMP [CHEM] AM Lab 03/31/18 05:11 Ordered CBC WITH AUTO DIFF [HEME] AM Lab 03/31/18 05:11 Ordered TROPONIN I [CHEM] AM Lab 03/31/18 05:11 Ordered TROPONIN I [CHEM] Routine Lab 03/30/18 23:10 Ordered Acetaminophen [Tylenol] Med 03/30/18 19:53 Active 650 mg PO Q4H PRN Albuterol [Proventil Neb Soln] Med 03/30/18 19:53 Active 2.5 mg NEB Q4H PRN Albuterol/Ipratropium [DuoNeb 3.0-0.5 MG/3 ML] Med 03/30/18 21:00 Active 3 ml NEB QIDRT Aspirin [Halfprin] Med 03/31/18 09:00 Active 81 mg PO DAILY Azithromycin [Zithromax] 500 mg Med 03/30/18 21:00 Active Sodium Chloride 0.9% [Normal Saline] 250 ml IV Q24H Carvedilol [Coreg] Med 03/30/18 21:00 Active 6.25 mg PO BID Clopidogrel [Plavix] Med 03/31/18 09:00 Active 75 mg PO DAILY Codeine/guaiFENesin [Robitussin AC] Med 03/30/18 20:00 Active 10 ml PO Q6H Docusate Sodium [Colace] Med 03/30/18 19:53 Active 100 mg PO BID PRN Folic Acid Med 03/30/18 19:53 Active 1 mg PO DAILY Losartan [Cozaar] Med 03/31/18 09:00 Active 100 mg PO DAILY Morphine Med 03/30/18 19:53 Active 2 mg IVPUSH Q2H PRN Nitroglycerin [Nitrostat] Med 03/30/18 19:53 Active 0.4 mg SL ASDIRECTED PRN Ondansetron [Zofran ODT] Med 03/30/18 19:53 Active 4 mg PO Q6H PRN Potassium Chloride [KCL 20 MEQ in Water 100 ML] 20 meq Med 03/30/18 19:53 Active Premix Bag 1 bag IV ONETIME Simvastatin [Zocor] Med 03/30/18 21:00 Active 40 mg PO BEDTIME Sodium Chloride 0.9% [Normal Saline] 1,000 ml Med 03/30/18 19:53 Active IV ASDIRECTED Thiamine [Vitamin B-1] Med 03/31/18 09:00 Active 100 mg PO DAILY amLODIPine [Norvasc] Med 03/31/18 09:00 Active 5 mg PO DAILY methylPREDNISolone Sod Succ [Solu-MEDROL] Med 03/31/18 04:00 Active 62.5 mg IVPUSH Q8H oxyCODONE Med 03/30/18 19:53 Active 5 mg PO Q4H PRN Resuscitation Status Routine Resus Stat 03/30/18 19:05 Ordered EKG 12 Lead [EK] Stat Ther 03/30/18 17:04 Stop Req Medication Orders Acetaminophen (Tylenol) 650 mg PO Q4H PRN PRN Reason: Pain (Mild 1-3)/fever Albuterol (Proventil Neb Soln) 2.5 mg NEB Q4H PRN PRN Reason: Shortness Of Breath/wheezing Albuterol/Ipratropium (Duoneb 3.0-0.5 Mg/3 Ml) 3 ml NEB QIDRT [facility] Last Admin: 03/30/18 20:22 Dose: 3 ml Amlodipine Besylate (Norvasc) 5 mg PO DAILY [facility] Aspirin (Halfprin) 81 mg PO DAILY [facility] Carvedilol (Coreg) 6.25 mg PO BID [facility] Last Admin: 03/30/18 20:23 Dose: 6.25 mg Clopidogrel Bisulfate (Plavix) 75 mg PO DAILY [facility] Docusate Sodium (Colace) 100 mg PO BID PRN PRN Reason: Constipation Folic Acid (Folic Acid) 1 mg PO DAILY [facility] Last Admin: 03/30/18 20:11 Dose: Not Given Guaifenesin/Codeine Phosphate (Robitussin Ac) 10 ml PO Q6H [facility] Last Admin: 03/30/18 20:22 Dose: 10 ml Azithromycin 500 mg/ Sodium (Chloride) 250 mls @ 250 mls/hr IV Q24H [facility] Potassium Chloride 20 meq/ (Premix) 100 mls @ 50 mls/hr IV ONETIME ONE Stop: 03/30/18 21:52 Last Admin: 03/30/18 20:34 Dose: 50 mls/hr Sodium Chloride (Normal Saline) 1,000 mls @ 100 mls/hr IV ASDIRECTED [facility] Last Admin: 03/30/18 20:34 Dose: 100 mls/hr Losartan Potassium (Cozaar) 100 mg PO DAILY [facility] Methylprednisolone Sodium Succinate (Solu-Medrol) 62.5 mg IVPUSH Q8H [facility] Morphine Sulfate (Morphine) 2 mg IVPUSH Q2H PRN PRN Reason: Pain (severe 7-10) Nitroglycerin (Nitrostat) 0.4 mg SL ASDIRECTED PRN PRN Reason: Chest Pain Ondansetron HCl (Zofran Odt) 4 mg PO Q6H PRN PRN Reason: Nausea able to take PO Oxycodone HCl (Oxycodone) 5 mg PO Q4H PRN PRN Reason: Pain (moderate 4-6) Simvastatin (Zocor) 40 mg PO BEDTIME [facility] Last Admin: 03/30/18 20:22 Dose: 40 mg Thiamine HCl (Vitamin B-1) 100 mg PO DAILY [facility] Assessment/Plan Comment:: History of Present Illness: This is a 62 year old frail appearing male, who was evaluated in ER for two day history of left sided chest pain. He reports the chest pain increases with any activity such as walking to the kitchen or out to the mailbox. The pain resolves with rest. He reports drinking everyday to intoxication for years, stopped drinking on Wednesday, because just didn't feel good. He also stopped his antibiotics, he really wasn't sure what he was taking them for on Wednesday as well. He is supposed to be on continuous home oxygen at 3 liters per NC, but he only wears oxygen at night, during the day feelings it is too much work to wear the "tube" and interferes with his smoking one pack of cigarettes per day and movement around the house. has inhalers but not sure of the dose or brand of inhaler. In ER labs and Imaging: Lab values = CBC unremarkable sodium low at 132 consistent hyponatremia potassium low at 3.0 consistent hypokalemia initial troponin was negative EKG demonstrates minimal ST changes less than 1 mm leads 23 aVF similar to prior EKG in 2013, chest x-ray no acute process per radiology Mr. Fu is willing to spend one night in the hospital to make sure his heart is okay. At this time he is comfortable and chest pain free. Chest Pain rule out OK -Troponin lab every 6 hours, at 2300 and 0500 -IV fluids NS at 100ml/hr -telemetry -continuous pulse oxygen -continuous oxygen 3 liter per NC -advise to report any chest pain or concerns to the Nurse COPD -IV Rocephin 1 gram every 24 hours -IV Zithromax 500 mg every 24 hours -IV solu medrol 125mg now and 62.5mg every 8 hours -Duo nebs every 6 hours scheduled, albuterol nebs as needed for shortness of breath -Robitussin AC 10ml every 6 hours scheduled -continuous oxygen and pulse ox HypoKalemia -IV Potassium 20 meq once -labs in am BMP Alcohol Dependence -monitor for signs of withdrawal Tobacco use -declines patch Maintenance issues - - DVT prophylaxis - ASA, Plavix - GI prophylaxis - PPI - Nutrition - regular diet - Virgen catheter - Not indicated CODE STATUS - Full code Admission justification - Patient will be referred observation status for gentle hydration and repeat laboratory testing. If numbers improve she should be able to go home and if they do not improve she will need transfer for nephrology evaluation Disposition - Anticipate discharge home Primary care physician - Dr Shaun Metzger M.D.
[2018-03-31] MEDS: Codeine/guaiFENesin 100mg-10 MG/5 ML Syrup 10 ML Cup PO SCH ×2 (01:56→08:58)
[2018-03-31] MEDS ORDERED: methylPREDNISolone Sodium Succinate 125 MG/2 ML SDV IVPUSH SCH (04:00)
[2018-03-31 07:23] VITALS: BP 132/69
[2018-03-31] MEDS: Albuterol/Ipratropium 3.0-0.5 MG/3 ML Neb Soln NEB SCH ×2 (07:24→10:44)
[2018-03-31] MEDS ORDERED: Carvedilol 6.25 MG Tab PO SCH (08:00)
[2018-03-31] MEDS: Folic Acid 1 MG Tab PO SCH (08:51)
[2018-03-31] MEDS: Sodium Chloride 0.9% 1,000 ML IV SCH (08:58)
[2018-03-31] MEDS ORDERED: Losartan 50 MG Tab PO SCH (09:00)
[2018-03-31] MEDS ORDERED: Clopidogrel 75 MG Tab PO SCH (09:00)
[2018-03-31] MEDS ORDERED: Aspirin 81 MG Tab.EC PO SCH (09:00)
[2018-03-31] MEDS ORDERED: Thiamine 100 MG Tab PO SCH (09:00)
[2018-03-31] MEDS ORDERED: amLODIPine 5 MG Tab PO SCH (09:00)
--- NOTE | 2018-03-31 11:56 | PCM.DCSUM1 ---
Discharge Summary - Hospital Course Brief History: 62-year-old male with severe oxygen dependent COPD, ongoing tobacco dependence and coronary artery disease with stenting 2 years ago who presented with exertional chest pain that has been slowly progressive. He was admitted for a chest pain rule out. Diagnosis: Stroke: No - Discharge Data Discharge Date: 03/31/18 Discharge Disposition: Home, Self-Care 01 Condition: Fair - Discharge Diagnosis/Problem(s) (1) Chest pain SNOMED Code(s): 93084074 ICD Code: R07.9 - CHEST PAIN, UNSPECIFIED Status: Acute Qualifiers: Chest pain type: other chest pain Qualified Code(s): R07.89 - Other chest pain; R07.8 - Other chest pain (2) CAD (coronary artery disease) SNOMED Code(s): 28801593 ICD Code: I25.10 - ATHSCL HEART DISEASE OF [place] CORONARY ARTERY W/O ANG PCTRS Status: Chronic Qualifiers: Coronary Disease-Associated Artery/Lesion type: [place] artery [place] vs. transplanted heart: [place] heart Associated angina: with stable angina Qualified Code(s): I25.118 - Atherosclerotic heart disease of [place] coronary artery with other forms of angina pectoris (3) COPD (chronic obstructive pulmonary disease) SNOMED Code(s): 46241242 ICD Code: J44.9 - CHRONIC OBSTRUCTIVE PULMONARY DISEASE, UNSPECIFIED Status : Chronic Priority: High Qualifiers: COPD type: unspecified COPD Qualified Code(s): J44.9 - Chronic obstructive pulmonary disease, unspecified (4) Tobacco dependence SNOMED Code(s): 15751627 ICD Code: F17.200 - NICOTINE DEPENDENCE, UNSPECIFIED, UNCOMPLICATED Status : Chronic Priority: Medium (5) Alcohol dependence SNOMED Code(s): 80892214 ICD Code: F10.20 - ALCOHOL DEPENDENCE, UNCOMPLICATED Status: Chronic Priority: Medium Qualifiers: Substance use status: with intoxication Complication of substance-induced condition: uncomplicated Qualified Code(s): F10.220 - Alcohol dependence with intoxication, uncomplicated - Patient Summary/Data Hospital Course: Brooks presented to the emergency room yesterday with exertional chest pain that resolved with rest. Workup in the emergency room was unremarkable including troponin and EKG that did not show ischemia. Given his concerning story and history of coronary artery disease he was admitted to the hospital for observation and chest pain rule out. Serial troponin levels were unremarkable. He did not have any recurrences of his chest pain. The morning after admission he was feeling fairly well. He walked down the hallway pushing a wheelchair and did not have any chest pain with exertion. There has been no evidence for infection such as fever or increased cough. He was started on antibiotics and steroids at the time of admission but these were discontinued with no strong evidence that they needed to be continued. His story of exertional chest pain when he does anything beyond his usual activity does raise concern for a potential obstructive lesion in a coronary artery. He feels well and would like to go home. We did set him up for a Marie scan stress test which will be completed next week. He was encouraged to avoid strenuous activities in the meantime and return if he has additional episodes of significant chest pain. - Patient Instructions Diet: Heart Healthy Diet Activity: As Tolerated, No Strenuous Activities Showering/Bathing: May Shower Notify Provider of: Increased Pain Other/Special Instructions: 1. You were in the hospital for observation of chest pain and to rule out myocardial infarction. There was no evidence that you had a heart attack at this time. Your story is concerning for stable angina and I would recommend outpatient stress testing. You should take it easy and avoid strenuous activities until after your stress test and follow-up. 2. Continue your usual home medications as previously prescribed. 3. Please return next Wednesday morning for a stress test as directed in additional discharge instructions. 4. Seek medical attention if you have fever greater than 101, significant chest pain or if you have severe shortness of breath. - Discharge Plan *PRESCRIPTION DRUG MONITORING PROGRAM REVIEWED*: Not Applicable *COPY OF PRESCRIPTION DRUG MONITORING REPORT IN PATIENT ZARA: Not Applicable Home Medications: Home Meds Carvedilol [Coreg] 6.25 mg PO BID 01/26/13 [History] Clopidogrel [Plavix] 75 mg PO DAILY 01/26/13 [History] Nitroglycerin [Nitrostat] 1 tab SL ASDIRECTED PRN 01/26/13 [History] Simvastatin [Zocor] 40 mg PO BEDTIME 01/26/13 [History] Aspirin [Adult Low Dose Aspirin EC] 81 mg PO DAILY 09/27/13 [History] Losartan [Cozaar] 100 mg PO DAILY 01/06/17 [History] Ondansetron [Zofran] 4 mg PO Q8H PRN 01/06/17 [History] amLODIPine [Norvasc] 5 mg PO DAILY 01/06/17 [History] Pantoprazole Sodium 40 mg PO DAILY 04/01/17 [History] Azithromycin 500 mg PO DAILY #1 tablet 04/04/17 [Rx] Cefdinir [IJD: Cefdinir] 300 mg PO BID #7 capsule 04/04/17 [Rx] Prednisone [IJD: predniSONE] 20 mg PO BIDAC #3 tablet 04/04/17 [Rx] oxyCODONE 5 mg PO Q4H PRN #20 tablet 04/04/17 [Rx] Oxygen Therapy Mode: Nasal Cannula Oxygen Flow Rate (L/min): 2 Patient Handouts: Steps to Quit Smoking, [id number], Smoking Tobacco Information, Chronic Obstructive Pulmonary Disease, [id number] Referrals: Reese Tate MD [Physician] - 04/08/18 1:30 pm (next Wednesday ) - Discharge Summary/Plan Comment DC Time >30 min.: No (40 - coordinating follow-up and stress testing) - Patient Data Vitals - Most Recent: Last Vital Signs Temp 36.8 C 03/31/18 07:00 Pulse 77 03/31/18 10:44 Resp 16 03/31/18 07:00 BP 132/69 03/31/18 08:52 Pulse Ox 97 03/31/18 10:44 Weight - Most Recent: 54.431 kg I&O - Last 24 hours: Intake & Output 03/30/18 03/31/18 03/31/18 22:59 06:59 14:59 Intake Total 150 1289 360 Output Total 850 Balance 150 439 360 Lab Results - Last 24 hrs: Laboratory Results - last 24 hr 03/30/18 03/30/18 03/30/18 Range/Units 17:03 17:03 23:10 WBC 5.5 (4.5-11.0) K/uL RBC 3.53 L (4.30-5.90) M/uL Hgb 12.0 (12.0-15.0) g/dL Hct 35.6 L (40.0-54.0) % MCV 101 H (80-98) fL MCH 34 H (27-31) pg MCHC 34 (32-36) % Plt Count 159 (150-400) K/uL Neut % (Auto) 51 (36-66) % Lymph % (Auto) 32 (24-44) % Emmons % (Auto) 11 H (2-6) % Eos % (Auto) 4 (2-4) % Baso % (Auto) 2 H (0-1) % Sodium 132 L (140-148) mmol/L Potassium 3.0 L (3.6-5.2) mmol/L Chloride 94 L (100-108) mmol/L Carbon Dioxide 28 (21-32) mmol/L Anion Gap 13.0 (5.0-14.0) mmol/L BUN 5 L (7-18) mg/dL Creatinine 0.8 (0.8-1.3) mg/dL Est Cr Clr Drug Dosing 75.60 mL/min Estimated GFR (MDRD) > 60 (>60) Glucose 124 H (74-106) mg/dL Calcium 9.1 (8.5-10.1) mg/dL Total Bilirubin 0.7 (0.2-1.0) mg/dL AST 27 (15-37) U/L ALT 20 (12-78) U/L Alkaline Phosphatase 62 (46-116) U/L Troponin I < 0.017 < 0.017 (0.000-0.056) ng/mL Total Protein 7.5 (6.4-8.2) g/dL Albumin 3.4 (3.4-5.0) g/dL Globulin 4.1 H (2.3-3.5) g/dL Albumin/Globulin Ratio 0.8 L (1.2-2.2) 03/31/18 03/31/18 Range/Units 04:00 04:00 WBC 2.1 L (4.5-11.0) K/uL RBC 3.55 L (4.30-5.90) M/uL Hgb 11.9 L (12.0-15.0) g/dL Hct 36.1 L (40.0-54.0) % MCV 102 H (80-98) fL MCH 34 H (27-31) pg MCHC 33 (32-36) % Plt Count 158 (150-400) K/uL Neut % (Auto) 66 (36-66) % Lymph % (Auto) 32 (24-44) % Emmons % (Auto) 2 (2-6) % Eos % (Auto) 0 L (2-4) % Baso % (Auto) 1 (0-1) % Sodium 135 L (140-148) mmol/L Potassium 3.9 (3.6-5.2) mmol/L Chloride 98 L (100-108) mmol/L Carbon Dioxide 28 (21-32) mmol/L Anion Gap 12.9 (5.0-14.0) mmol/L BUN 5 L (7-18) mg/dL Creatinine 0.6 L (0.8-1.3) mg/dL Est Cr Clr Drug Dosing 100.80 mL/min Estimated GFR (MDRD) > 60 (>60) Glucose 153 H (74-106) mg/dL Calcium 9.0 (8.5-10.1) mg/dL Total Bilirubin (0.2-1.0) mg/dL AST (15-37) U/L ALT (12-78) U/L Alkaline Phosphatase (46-116) U/L Troponin I 0.017 (0.000-0.056) ng/mL Total Protein (6.4-8.2) g/dL Albumin (3.4-5.0) g/dL Globulin (2.3-3.5) g/dL Albumin/Globulin Ratio (1.2-2.2) Med Orders - Current: Current Medications Acetaminophen (Tylenol) 650 mg PO Q4H PRN PRN Reason: Pain (Mild 1-3)/fever Albuterol (Proventil Neb Soln) 2.5 mg NEB Q4H PRN PRN Reason: Shortness Of Breath/wheezing Albuterol/Ipratropium (Duoneb 3.0-0.5 Mg/3 Ml) 3 ml NEB QIDRT [facility] Last Admin: 03/31/18 10:44 Dose: 3 ml Amlodipine Besylate (Norvasc) 5 mg PO DAILY [facility] Last Admin: 03/31/18 08:52 Dose: 5 mg Aspirin (Halfprin) 81 mg PO DAILY [facility] Last Admin: 03/31/18 08:52 Dose: 81 mg Carvedilol (Coreg) 6.25 mg PO BIDMEALS [facility] Last Admin: 03/31/18 08:52 Dose: 6.25 mg Clopidogrel Bisulfate (Plavix) 75 mg PO DAILY [facility] Last Admin: 03/31/18 08:53 Dose: 75 mg Docusate Sodium (Colace) 100 mg PO BID PRN PRN Reason: Constipation Folic Acid (Folic Acid) 1 mg PO DAILY [facility] Last Admin: 03/31/18 08:51 Dose: 1 mg Guaifenesin/Codeine Phosphate (Robitussin Ac) 10 ml PO Q6H [facility] Last Admin: 03/31/18 08:58 Dose: 10 ml Azithromycin 500 mg/ Sodium (Chloride) 250 mls @ 250 mls/hr IV Q24H [facility] Last Admin: 03/30/18 23:17 Dose: 250 mls/hr Sodium Chloride (Normal Saline) 1,000 mls @ 100 mls/hr IV ASDIRECTED [facility] Last Admin: 03/31/18 08:58 Dose: 100 mls/hr Losartan Potassium (Cozaar) 100 mg PO DAILY [facility] Last Admin: 03/31/18 08:51 Dose: 100 mg Methylprednisolone Sodium Succinate (Solu-Medrol) 62.5 mg IVPUSH Q8H [facility] Last Admin: 03/31/18 03:52 Dose: 62.5 mg Morphine Sulfate (Morphine) 2 mg IVPUSH Q2H PRN PRN Reason: Pain (severe 7-10) Nitroglycerin (Nitrostat) 0.4 mg SL ASDIRECTED PRN PRN Reason: Chest Pain Ondansetron HCl (Zofran Odt) 4 mg PO Q6H PRN PRN Reason: Nausea able to take PO Oxycodone HCl (Oxycodone) 5 mg PO Q4H PRN PRN Reason: Pain (moderate 4-6) Simvastatin (Zocor) 40 mg PO BEDTIME [facility] Last Admin: 03/30/18 20:22 Dose: 40 mg Thiamine HCl (Vitamin B-1) 100 mg PO DAILY [facility] Last Admin: 03/31/18 08:53 Dose: 100 mg Discontinued Medications Aspirin (Aspirin) 324 mg PO ONETIME ONE Stop: 03/30/18 17:04 Last Admin: 03/30/18 17:15 Dose: 324 mg Carvedilol (Coreg) 6.25 mg PO BID [facility] Last Admin: 03/30/18 20:23 Dose: 6.25 mg Ceftriaxone Sodium 1 gm/ (Sodium Chloride) 50 mls @ 100 mls/hr IV ONETIME ONE Stop: 02/13/19 20:29 Last Admin: 03/30/18 20:23 Dose: 100 mls/hr Potassium Chloride 20 meq/ (Premix) 100 mls @ 50 mls/hr IV ONETIME ONE Stop: 03/30/18 21:52 Last Admin: 03/30/18 20:34 Dose: 50 mls/hr Lidocaine HCl (Xylocaine-Mpf 1%) 2 ml INJECT ONETIME ONE Stop: 03/30/18 20:13 Last Admin: 03/30/18 20:35 Dose: 2 ml Methylprednisolone Sodium Succinate (Solu-Medrol) 125 mg IVPUSH ONETIME ONE Stop: 03/30/18 20:01 Last Admin: 03/30/18 20:22 Dose: 125 mg Sodium Chloride (Saline Flush) 10 ml FLUSH ASDIRECTED PRN PRN Reason: Keep Vein Open Last Admin: 03/30/18 17:15 Dose: 10 ml - Exam Quality Assessment: Reports: Supplemental Oxygen General: Reports: Alert, Oriented, Cooperative, No Acute Distress Lungs: Reports: Normal Respiratory Effort Cardiovascular: Reports: Regular Rate, Regular Rhythm GI/Abdominal Exam: Soft, No Distention Extremities: No Pedal Edema Psy/Mental Status: Reports: Alert, Normal Affect
== END 2018-03-31 11:55 | disposition home or self-care (01) ==
LOC: JP.ED 16:42 → JP.MS 19:03
PROVIDERS: ADMIT Internal Medicine; ATTEND Internal Medicine
DX: R07.89 Other chest pain (principal); I25.118 Atherosclerotic heart disease of native coronary artery with other forms of angina pectoris; J44.9 Chronic obstructive pulmonary disease, unspecified; F17.210 Nicotine dependence, cigarettes, uncomplicated; F10.220 Alcohol dependence with intoxication, uncomplicated; Z79.02 Long term (current) use of antithrombotics/antiplatelets; Z79.82 Long term (current) use of aspirin; Z79.899 Other long term (current) drug therapy; Z99.81 Dependence on supplemental oxygen
CPT/HCPCS: 36415; 71045; 80048; 80053; 84484; 85025; 93005; 94640; 94762; 99285; A9270; J0456; J0696; J2930; J3480; J7030; J7050; 93010; 96361; 96365; 96366; 96367; 96375; 96376; G0378; J2001; J7620-GY

== ENCOUNTER 2018-08-29 23:40 | Emergency (ER) | payer MEDICARE, MEDICAID ==
--- NOTE | 2018-08-30 03:12 | EDM.PDOC ---
ED HPI GENERAL MEDICAL PROBLEM - General Chief Complaint: CPR in Progress Stated Complaint: [facility] Time Seen by Provider: 08/29/18 23:40 Source of Information: Reports: EMS History Limitations: Reports: Other (CPR in progress) - History of Present Illness INITIAL COMMENTS - FREE TEXT/NARRATIVE: 63-year-old male with a known history of coronary artery disease, apparently was on his way to the emergency room with chest pain, taking nitroglycerin when he collapsed while walking to the emergency room. Within 3 minutes he was found by police and CPR was initiated. EMS arrived, found him to be in a "shockable rhythm "which was provided. ACLS algorithm was followed, the patient received epinephrine 3, amiodarone 2, and several defibrillations. When progress was not making made he was transported to the emergency room for further evaluation. On arrival JIGAR device was in place providing CPR, his end-tidal CO2 was 25, but he appeared to be developing some cyanosis of the head and neck. Onset: Unknown/Unsure Treatments [employer]: Reports: CPR, Intubation, IV/IO, Other Medication(s), Oxygen, See EMS Report - Related Data Allergies Allergy/AdvReac Type Severity Reaction Status Date / Time No Known Allergies Allergy Verified 04/13/18 08:34 Home Meds: Home Meds Carvedilol [Coreg] 6.25 mg PO BID 01/26/13 [History] Clopidogrel [Plavix] 75 mg PO DAILY 01/26/13 [History] Nitroglycerin [Nitrostat] 1 tab SL ASDIRECTED PRN 01/26/13 [History] Simvastatin [Zocor] 40 mg PO BEDTIME 01/26/13 [History] Aspirin [Adult Low Dose Aspirin EC] 81 mg PO DAILY 09/27/13 [History] Losartan [Cozaar] 100 mg PO DAILY 01/06/17 [History] Ondansetron [Zofran] 4 mg PO Q8H PRN 01/06/17 [History] amLODIPine [Norvasc] 5 mg PO DAILY 01/06/17 [History] Pantoprazole Sodium 40 mg PO DAILY 04/01/17 [History] Azithromycin 500 mg PO DAILY #1 tablet 04/04/17 [Rx] Cefdinir [IJD: Cefdinir] 300 mg PO BID #7 capsule 04/04/17 [Rx] Prednisone [IJD: predniSONE] 20 mg PO BIDAC #3 tablet 04/04/17 [Rx] oxyCODONE 5 mg PO Q4H PRN #20 tablet 04/04/17 [Rx] Past Medical History HEENT History: Reports: Impaired Vision Cardiovascular History: Reports: Blood Clots/VTE/DVT, CAD, High Cholesterol, Hypertension, ID, SOB on Exertion, Stents Respiratory History: Reports: SOB Gastrointestinal History: Reports: GERD Musculoskeletal History: Reports: Back Pain, Chronic, Fracture, Other (See Below ) Other Musculoskeletal History: fx right femur, no surgery to repair this. Neurological History: Reports: Other (See Below) Other Neuro History: has been passing out lately. Psychiatric History: Reports: Addiction, Other (See Below) Other Psychiatric History: ETOH Hematologic History: Reports: Anemia - Infectious Disease History Infectious Disease History: Reports: Chicken Pox Other Infectious Disease History: doesn't know - Past Surgical History Head Surgeries/Procedures: Reports: None Cardiovascular Surgical History: Reports: Coronary Artery Stent, Vascular Surgery Respiratory Surgical History: Reports: None GI Surgical History: Reports: Colonoscopy, Hernia, Inguinal Neurological Surgical History: Reports: None Social & Family History - Family History Family Medical History: Unobtainable - Tobacco Use Smoking Status *Q: Current Status Unknown - Caffeine Use Caffeine Use: Reports: Coffee Caffeine Use Comment: 10cups/day - Living Situation & Occupation Living situation: Reports: Single, Alone Occupation: Unemployed (lives near family. no children) ED ROS GENERAL - Review of Systems Review Of Systems: Unable To Obtain ED EXAM, CPR - Physical Exam Exam: See Below Limited By: Unresponsive Respiratory Chest: Other (Patient was intubated) Cardiovascular: CPR In Progress Neurological: Unresponsive Course - Vital Signs Last Recorded V/S: Last Vital Signs Temp Pulse Resp BP Pulse Ox 100 08/29/18 23:41 - Re-Assessments/Exams Free Text/Narrative Re-Assessment/Exam: 08/30/18 03:09 After the patient arrived in the emergency room, the Jigar device was stopped briefly and the patient appeared to be in asystole. The ultrasound was placed on the patient's chest, a good transverse view of both ventricles was displayed and there was no cardiac activity. CPR was discontinued at that point and patient was pronounced . Departure - Departure Time of Disposition: 12:55 Disposition: 20 Clinical Impression: Cardiac arrest - Discharge Information Referrals: PCP,None [Primary Care Provider] - Forms: ED Department Discharge Care Plan Goals: Patient was pronounced in the emergency room after no cardiac activity was found on ultrasound, and he was not responding to CPR and ACLS medications. Bedside critical care was provided for 10 minutes. Critical Care Note - Critical Care Note Total Time (mins): 10
== END 2018-08-30 12:30 | disposition expired ==
LOC: JP.ED 23:40
DX: I46.9 Cardiac arrest, cause unspecified (principal); I25.10 Atherosclerotic heart disease of native coronary artery without angina pectoris; E78.00 Pure hypercholesterolemia, unspecified; I25.2 Old myocardial infarction; K21.9 Gastro-esophageal reflux disease without esophagitis; Z79.02 Long term (current) use of antithrombotics/antiplatelets; Z79.899 Other long term (current) drug therapy; Z86.73 Personal history of transient ischemic attack (TIA), and cerebral infarction without residual deficits
CPT/HCPCS: 31500; 92950; 99284; 99285-25